=== PATIENT | female | born 2000 | race Two or more races ===

== ENCOUNTER 2024-10-25 22:19 | Emergency (ER) | payer BC, SELFPAY ==
[2024-10-25 22:19] VITALS: BMI 30.5
[2024-10-25 22:36] VITALS: BP 123/80; PULSE 90; RESP 18; TEMP 37.3; O2SAT 98
--- NOTE | 2024-10-25 23:15 | EDNOTE_ITS ---
Upper Respiratory Inf. RME/HPI General Chief Complaint: Dental/Oral/Throat Stated Complaint: SORE THROAT, SPIT UP BLOOD Time Seen by Provider: 10/25/24 22:40 Arrival date/time: 10/25/24 22:19 24F with no significant PMH presents to ED with 2 days of sore throat and some spitting up blood. Patient denies cough and N/V. Limitations: no limitations Related Data Previous Rx's ?Medication ?Instructions ?Recorded azithromycin 500 mg tablet 500 mg PO QDAY 5 days #5 tabs 10/25/24 Allergies Allergy/AdvReac Type Severity Reaction Status Date / Time Penicillins Allergy Severe RASH Verified 04/04/16 10:37 Review of Systems Review of Systems Systems Reviewed: All systems reviewed, normal except as documented Constitutional Constitutional: Reports system reviewed and no additional complaints, except as documented, Denies fever(s) and Denies headache(s) ENT Ears, Nose, Mouth, and Throat: Reports as per HPI, Denies disequilibrium, Denies headache(s) and Reports sore throat Cardiovascular Cardiovascular: Reports system reviewed and no additional complaints, except as documented, Denies chest pain and Denies dyspnea Respiratory Respiratory: Reports system reviewed and no additional complaints, except as documented, Denies cough and Denies dyspnea Gastrointestinal Gastrointestinal: Reports system reviewed and no additional complaints, except as documented, Denies abdominal pain, Denies nausea and Denies vomiting Neurologic Neurologic: Reports system reviewed and no additional complaints, except as documented, Denies confusion, Denies disequilibrium and Denies headache(s) Psychiatric Psychiatric: Denies confusion Past Medical History Social History SMOKING STATUS: Never smoker ED Exam General Limitations: Present no limitations General appearance: Present alert and in no apparent distress Head Head exam: Present atraumatic Eye Eye exam: Present normal appearance, PERRL and EOMI ENT ENT exam: Present mucous membranes moist Expanded ENT Exam Throat exam: Present tonsillar erythema, tonsillomegaly and tonsillar exudate; Absent R peritonsillar mass, L peritonsillar mass or muffled voice Neck Neck exam: Present normal inspection, full ROM and trachea midline Chest Chest inspection: Present normal inspection and symmetric chest wall rise Respiratory Respiratory exam: Present normal lung sounds bilaterally Cardiovascular Cardiovascular exam: Present regular rate, normal rhythm and normal heart sounds Abdominal Exam Abdominal exam: Present soft and normal bowel sounds Extremities Exam Extremities exam: Present normal inspection and full ROM Back Exam Back exam: Present normal inspection and full ROM Neurological Exam Neurological exam: Present alert, oriented X3 and CN II-XII intact Psychiatric Psychiatric exam: Present normal affect and normal mood Skin Skin exam: Present warm, dry, intact and normal color Course Quality Measures none Orders Category Date Time Status Strep A Rapid Stat Lab 10/25/24 22:40 Completed Vital Signs Vital signs: Vital Signs Temperature 99.2 F 10/25/24 22:36 Pulse Rate 90 10/25/24 22:36 Respiratory Rate 18 10/25/24 22:36 Blood Pressure 123/80 10/25/24 22:36 Pulse Oximetry (%) 98 10/25/24 22:36 Oxygen Delivery Method Room Air 10/25/24 22:36 O2 at 98% on RA and WNLs Upper Respiratory Infection MDM Narrative MDM Narrative:: 24F with no significant PMH presents to ED with 2 days of sore throat and some spitting up blood. Patient denies cough and N/V. Physical exam reveals red and swollen oropharynx with some exudates. Patient is afebrile, calm, and alert. Strep neg. But given presentation and bleeding, will treat with ABX. Patient data External records reviewed:: [facility] previous records Clinical information provided by:: patient Social determinants that could affect healthcare access:: none Patient has the following chronic illnesses:: none How is presenting disease/condition affected by chronic disease/condition?: no chronic disease Evaluation data The following diagnostics were reviewed and interpreted by me:: lab results Lab and/or radiology exams considered but not ordered:: ordered Interpretation Summary: above Medications / Prescriptions Medications or Prescriptions considered but not ordered:: not ordered Medication administrations:: n/a Consultations Consultation(s) initiated? (list below): No Diagnosis Upper Respiratory Differential Diagnosis: upper respiratory infection, croup, otitis media, sinusitis, viral infection, bronchitis, influenza, pharyngitis and other (tonsillitis ) Most likely diagnosis given after review of the tests above:: tonsillitis Admission Indicated Admission indicated?: not indicated Admission Request Was there a request for admission?: No Disposition Plan Disposition Plan: Discharge Discharge Attestation Discharge Attestation: The patient and all family members were given an opportunity to ask questions and understood the discharge instructions. Discharge instructions specifically effects, indications for sooner follow up or return to the emergency department, and the expected course of current diagnosis. Patient condition: Stable Discharge Plan Plan Patient Disposition: HOME (Self Care) Disposition Comment: Stable Prescriptions/Referrals Prescriptions/Med Rec: New azithromycin 500 mg tablet 500 mg PO QDAY 5 Days Qty: 5 0RF Problem List Clinical Impression: Acute tonsillitis Patient/Caregiver Discharge Instructions Education Materials: Tonsillitis in Adults Additional Instructions: Please follow-up with PCP within 24-48 hours and return immediately if symptoms worsen. Print Language: Kyrgyz Stand Alone Forms: Patient Portal Info Letter PA/BINDER CUTTER HAND Supervising Physician JOSEPH/KENYETTA Supervising Physician: Dr. Perez
[2024-10-25 23:18] LABS: Strep A Rapid Negative (Negative)
== END 2024-10-25 23:25 | disposition home or self-care (01) ==
PROVIDERS: Physician Assistant; Emergency Provider Emergency Medicine
DX: J03.90 Acute tonsillitis, unspecified (principal)
CPT/HCPCS: 87651; 99283

== ENCOUNTER 2025-03-12 13:57 | Outpatient (AMB) | payer BC, SELFPAY ==
--- NOTE | 2025-03-12 14:13 | OBCLNT_ITS ---
Vital Signs 03/12/25 14:23 Height 1.47 m Height Method Stated Weight 69.853 kg Weight Measurement Method Standing Scale BMI 32.1 BP 121/76 Blood Pressure Source Automatic Cuff Blood Pressure Location Right Upper Arm Position Sitting Respiration 16 Pulse 83 Pulse Source Monitor Temp 98.8 F Temp Source Oral Pulse Oximetry (%) 98 Oxygen Delivery Method Room Air Allergies/Home Meds Allergies & Medications Allergies Penicillins Allergy (Severe, Verified 03/12/25 14:26) RASH Medication Reconciliation No Known Home Medications 03/12/25 [History Confirmed 03/12/25] Intake Visit Data Collection New Patient or Established: Established Patient (seen at [facility] within 3 years) Reason for Visit:: INITIAL CARE Seen by Clinical Staff ONLY (RN/MA): No Dispatcher Tugboat Required: No Do You Feel Safe at Home: Yes Authorities Contacted: N/A PCP or OBGYN visit in last 3 months: No Hx Now: Yes Are you currently on any form of Control: No Last menstrual period: 01/09/25 Pain Present Currently: No Pain Scale Used: Landeros-Simpson/Numerical Pain scale:: 0 Smoking Status Smoking Status: Never smoker Questionnaires Covid-19 Vaccine Questionnaire Has patient been vacinated for Covid-19 Have you been vacinated for Covid-19: Yes PHQ-9 PHQ-2 Over the last 2 weeks, how often have you been bothered by any of the following problems? 1. Little interest or pleasure in doing things: not at all 2. Feeling down, depressed, or hopeless: not at all Total score: 0 PHQ-9 3. Trouble falling or staying asleep, or sleeping too much: Not at all 4. Feeling tired or having little energy: Not at all 5. Poor appetite or overeating: Not at all 6. Feeling bad about yourself - or that you are a failure or have let yourself or your family down: Not at all 7. Trouble concentrating on things, such as reading the newspaper or watching television: Not at all 8. Moving or speaking so slowly that other people could have noticed? - Or the opposite - being so fidgety or restless that you have been moving around a lot more than usual: not at all 9. Thoughts that you would be better off or of hurting yourself in some way: Not at all Total score: 0 Source: Developed by Drs. Sharath Ibarra, Jocelyn Loza, Ronny Parmar and colleagues, with an educational kandace from [employer]. Depression screen completed yes Social History Tobacco History Smoking Status: Never smoker Domestic Abuse History Do You Feel Safe at Home: Yes Past Medical History Past Medical History Have you ever been diagnosed with any of the following: History of Present Illness HPI Narrative 25 yo , IUP 8w6 for OBI. lmp 01/09/25. EDC 10/17/25. sure date. menarche at 10. menses q month. No PMH,No social habit.no surgery. here with partner, Happy with + preg test. denies sab complaints, taking prenatals OB Initial Visit OB Flowsheet OB Flowsheet Initial Weight: Not Recorded Date -?-?-?-?-?-?-?-?-?-?-?-?- EGA Weight Edema CTX Effacement BP Fundal ht Pres Dilation Effacement Station Visit Note Alb Glu FHR Mov 03/12/25 -?-?-?-?-?-?-?-?-?-?-?-?- 8w 6d 69.853 kg absent absent 121/76 9 25 yo for OBI, sure dates, LMP 01/09/26, IUP 8w6. no 1st tri discomfort. takes PNV, Negative medical history. patients reports she is bisexual. labs and UTOX today, get NIPT and carrier screen 5/15, sono for dates and viability. pap today. rtc 4 week 25 yo for OBI, sure josee es, LMP 01/09/26, IUP 8w6. no 1st tri discomfort. takes PNV, Negative medical history. patients reports she is bisexual. labs and UTOX today, get NIPT and carrier screen /15, sono for dates and viability. pap today. rtc 4 week. urine dip clear Menstrual History Menstrual reliability: definite Flow: normal Menstrual regularity: regular Monthly: Yes Age at menarche: 10 On control pills at conception: No Associated symptoms (LMP): Reports fatigue, breast tenderness and irritability Details: , lmp:01/09/25. EDC 10/17/25 OB History : 1 # of Living Children: 0 Infection History & Risk Evaluation History of STDs: none HIV risk evaluation: low risk Hepatitis B risk evaluation: low risk Patient or partner has history of Genital Herpes: No Genetic Screening & History Genetic Screening/Teratology Counseling - Includes patient, baby's father, or anyone in either family with: 1. Patient's age 35 years or older as of estimated date of delivery: No 2. Thalassemia (Malagasy, Faroese, Mediterranean, or Background); MCV less than 80: No 3. Neural Tube Defect (Meningomyelocele, Spina Bifida, or Anencephaly): No 4. Congenital Heart Defect: No 5. Down Syndrome: No 6. Amado-Sachs (Ashkenazi Cheondoism, Cajun, Icelandic [place]irondack): No 7. Orlando Disease (Ashkenazi Cheondoism): No 8. Familial Dysautonomia (Ashkenazi Cheondoism): No 9. Sickle Cell Disease or Trait (): No 10. Hemophilia or other blood disorders: No 11. Muscular Dystrophy: No 12. Cystic Fibrosis: No 13. Bee's Chorea: No 14. Mental Retardation/Autism: No 15. Other inherited genetic or chromosomal disorder: No 16. Maternal Metabolic Disorder (EG,TYPE 1 Diabetes, PKU): No 17. Patient or baby's father had a child with defects not listed above: No 18. Recurrent loss or a stillbirth: No 19. Medications (including supplements, vitamins, herbs or otc drugs)/illicit/recreational drugs/alcohol since last menstrual period: No 20. Any other: No Infection History 1. Live with someone with TB or exposed to TB: No 2. Rash or viral illness since last menstrual period: No 3. Hepatitis B,C: No Other (see comments) Source: [employer] Review of Systems Review of Systems Systems Reviewed: All systems reviewed, normal except as documented Constitutional Constitutional: Reports fatigue Psychiatric Psychiatric: Reports irritability Endocrine Endocrine: Reports fatigue Exam Narrative Physical exam: both breast soft, symmetrical, both nipple pierced. abdomen soft, 9 week size, vagina pink, no bleeding. lungs clear, RRR, no edema General Limitations: no limitations General Appearance: alert, in no apparent distress, comfortable, cooperative, healthy appearing, well developed and well groomed Chest Chest inspection: Present normal inspection and symmetric chest wall rise Resp Respiratory exam: Present normal lung sounds bilaterally Card Cardiovascular exam: Present regular rate, normal rhythm and normal heart sounds Abdominal Abdominal exam: Present soft and normal bowel sounds Psych Psychiatric exam: Present normal affect and normal mood Assessment & Plan Diagnosis / Problem List (1) Encounter for care in first trimester of first : Status: Acute (2) : Status: Acute Qualifiers: Weeks of gestation: 9 weeks Qualified Code(s): Z3A.09 - 9 weeks gestation of Plan Pap today, OB panel, NIPT and carrier screen Drawn 03/20/25, schedule sono for date and viability. schedule MFM at 20 week. sab precaution discussed. discuss diet and weight. rtc 4 week Additional Plan Follow Up: 4 Weeks (obc) Office Procedures OB Clinic LOC & Office Proc's Nursing/Assessment Patient Status: Established Patient OB Clinic Nursing Assessment: Medication Reconciliation, Update PMH in EMR and Vital Signs OB Clinic Coordination of Care: Complex Care and Chronic Disease 1-5, Consent,records obtained, informed consent, Education Simp Pt/Fam, Lab and Imaging orders, Results/Orders obtained and Staff clarify orders Special Needs: Heart tones Miscellaneous Interventions: Blood/Urine Collection and Pelvic/Pap Smear Set up Established Patient Charge Established Patient Point Assignment: 185 Established Patient Point Charge: EP Level 5 (160-above) In Clinic Procedures Pap Smear: Yes FLOORING GRADER: Papsmear Pap Smear Procedure Chaparone in room during procedure?: No Pre-op diagnosis general: IUP 8w for pap Post-op diagnosis procedure note: Same Procedure Notes:: lithotomy, spec inserted and pap performed. no bleeding Papsmear completed: yes
[2025-03-12 14:23] VITALS: BP 121/76; PULSE 83; RESP 16; TEMP 37.1; O2SAT 98; BMI 32.1
== END 2025-03-12 14:46 | disposition home or self-care (01) ==
LOC: HODSOBC 13:57
PROVIDERS: Supervising Provider Advanced Practice Midwife; Visit Provider Advanced Practice Midwife
DX: Z34.01 Encounter for supervision of normal first pregnancy, first trimester (principal); Z3A.08 8 weeks gestation of pregnancy; Z88.0 Allergy status to penicillin
CPT/HCPCS: 81001; 99215; Q0091; G0463

== ENCOUNTER 2025-04-09 09:07 | Outpatient (AMB) | payer BC, SELFPAY ==
--- NOTE | 2025-04-09 09:19 | AMB.OBVISIT ---
Vital Signs 04/09/25 09:20 Height 1.47 m Height Method Stated Weight 68.719 kg Weight Measurement Method Standing Scale BMI 31.6 BP 118/76 Blood Pressure Source Automatic Cuff Blood Pressure Location Right Upper Arm Position Sitting Respiration 17 Pulse 65 Pulse Source Monitor Temp 98.2 F Temp Source Temporal Artery Scan Pulse Oximetry (%) 98 Oxygen Delivery Method Room Air Allergies/Home Meds Allergies & Medications Allergies Penicillins Allergy (Severe, Verified 04/09/25 09:20) RASH Medication Reconciliation vits no.126-ferrous fum 28 mg iron-folic acid 800 mcg tablet (Classic ) 0.126 - 28 tab PO DAILY 30 days #60 tabs 03/12/25 [Rx Confirmed 04/09/25] Intake Visit Data Collection New Patient or Established: Established Patient (seen at [facility] within 3 years) Reason for Visit:: OBC Seen by Clinical Staff ONLY (RN/MA): No Director Of Corporate Marketing Required: No Do You Feel Safe at Home: Yes Authorities Contacted: N/A PCP or OBGYN visit in last 3 months: Yes Date of Last PCP or OBGYN visit: 03/12/25 Hx Now: Yes Are you currently on any form of Control: No Pain Present Currently: No Pain Scale Used: Landeros-Simpson/Numerical Pain scale:: 0 Smoking Status Smoking Status: Never smoker Questionnaires Covid-19 Vaccine Questionnaire Has patient been vacinated for Covid-19 Have you been vacinated for Covid-19: Yes PHQ-9 PHQ-2 Over the last 2 weeks, how often have you been bothered by any of the following problems? 1. Little interest or pleasure in doing things: not at all 2. Feeling down, depressed, or hopeless: several days Total score: 1 PHQ-9 3. Trouble falling or staying asleep, or sleeping too much: Not at all 4. Feeling tired or having little energy: Several days 5. Poor appetite or overeating: Not at all 6. Feeling bad about yourself - or that you are a failure or have let yourself or your family down: Not at all 7. Trouble concentrating on things, such as reading the newspaper or watching television: Not at all 8. Moving or speaking so slowly that other people could have noticed? - Or the opposite - being so fidgety or restless that you have been moving around a lot more than usual: not at all 9. Thoughts that you would be better off or of hurting yourself in some way: Not at all Total score: 2.0 If you checked off any problems, how difficult have these problems made it for you to do your work, take care of things at home, or get along with other people?: not difficult at all Source: Developed by Drs. Sharath Ibarra, Jocelyn Loza, Ronny Parmar and colleagues, with an educational kandace from [employer]. Depression screen completed yes Social History Living Situation History Lives With: Family Housing: House Tobacco History Smoking Status: Never smoker Domestic Abuse History Do You Feel Safe at Home: Yes Care OB Visit Log OB Flowsheet Initial Weight: Not Recorded Date <del>?</del> EGA Weight BP Alb Glu CTX Pres Fundal ht FHR Mov Dilation Station Effacement Hx Notes Visit Note 03/12/25 <del>?</del> 5w 3d 69.853 kg 121/76 absent 9 25 yo for OBI, sure dates, LMP 01/09/26, IUP 8w6. no 1st tri discomfort. takes PNV, Negative medical history. patients reports she is bisexual. labs and UTOX today, get NIPT and carrier screen 03/20, sono for dates and viability. pap today. rtc 4 week 25 yo for OBI, sure dates, LMP 01/09/26, IUP 8w6. no 1st tri discomfort. takes PNV, Negative medical history. patients reports she is bisexual. labs and UTOX today, get NIPT and carrier screen 03/20, sono for dates and viability. pap today. rtc 4 week. urine dip clear 04/09/25 <del>?</del> 9w 3d 68.719 kg 118/76 absent unknown 10 doing well. aware of need for colpo due to abnormal pap/ASCUS/HPV+. patient aware of twin , no +FM yet, denies VB,LOF or cramps. no c/o N/V reviewed pap and need for colpo. schedule MFM appointment for twins/NT and early scan, review SAB precaution and danger s/s. continue PNV and increase fluids, RTC with OB 4 week RAPHAEL Calculator Estimated Delivery Date Method Current WG Current Estimate 11/09/25 Ultrasound #1 9w 3d Other Estimates 10/16/25 LMP (Certain) 12w 6d Notes Visit Date: 04/09/25 Last Updated by: Ita Almaraz, MAURILIO 25 yo , IUP 9w3/ twin abnormal pap: ASCUS/HPV+ Office Procedures OB Clinic LOC & Office Proc's Nursing/Assessment Patient Status: Established Patient OB Clinic Nursing Assessment: Medication Reconciliation, Update PMH in EMR and Vital Signs OB Clinic Coordination of Care: Complex Care and Chronic Disease 1-5, Consent,records obtained, informed consent, Education Simp Pt/Fam and Staff clarify orders Special Needs: Heart tones Established Patient Charge Established Patient Point Assignment: 115 Established Patient Point Charge: EP Level 3 (80-115) Assessment & Plan Diagnosis / Problem List (1) Twin gestation in first trimester: Status: Acute (2) Encounter for care in first trimester of first : Status: Acute (3) High risk case management patient in first trimester: Status: Acute Plan schedule with OB in 4 week. needs f/u for abnormal pap/colpo. schedule MFM appointment for early scan and NT. discuss sab precaution. continue PNV,increase fluid. Additional Plan Follow Up: 4 Weeks (obc)
[2025-04-09 09:20] VITALS: BP 118/76; PULSE 65; RESP 17; TEMP 36.8; O2SAT 98; BMI 31.6
== END 2025-04-09 09:58 | disposition home or self-care (01) ==
LOC: HODSOBC 09:07
PROVIDERS: Supervising Provider Obstetrics & Gynecology; Visit Provider Obstetrics & Gynecology
DX: O09.891 Supervision of other high risk pregnancies, first trimester (principal); O30.001 Twin pregnancy, unspecified number of placenta and unspecified number of amniotic sacs, first trimester; O98.311 Other infections with a predominantly sexual mode of transmission complicating pregnancy, first trimester; A63.0 Anogenital (venereal) warts; Z3A.09 9 weeks gestation of pregnancy; Z88.0 Allergy status to penicillin
CPT/HCPCS: 99213; G0463

== ENCOUNTER 2025-05-20 09:26 | Outpatient (AMB) | payer OTHER, MEDICAID, SELFPAY ==
[2025-05-20 09:48] VITALS: BP 101/67; PULSE 88; RESP 17; TEMP 36.8; O2SAT 97; BMI 31.7
--- NOTE | 2025-05-20 09:48 | OBCLNT_ITS ---
Vital Signs 05/20/25 09:48 Height 1.47 m Height Method Stated Weight 68.606 kg Weight Measurement Method Standing Scale BMI 31.7 BP 101/67 Blood Pressure Source Automatic Cuff Blood Pressure Location Right Upper Arm Position Sitting Respiration 17 Pulse 88 Pulse Source Monitor Temp 98.2 F Temp Source Temporal Artery Scan Pulse Oximetry (%) 97 Oxygen Delivery Method Room Air Allergies/Home Meds Allergies & Medications Allergies Penicillins Allergy (Severe, Verified 05/20/25 09:48) RASH Medication Reconciliation vits no.126-ferrous fum 28 mg iron-folic acid 800 mcg tablet (Classic ) 0.126 - 28 tab PO DAILY 30 days #60 tabs 03/12/25 [Rx Confirmed 05/20/25] Intake Visit Data Collection New Patient or Established: Established Patient (seen at [facility] within 3 years) Reason for Visit:: OBC 15W 2D Seen by Clinical Staff ONLY (RN/MA): No Suppression Crew Leader Required: No Do You Feel Safe at Home: Yes Authorities Contacted: N/A PCP or OBGYN visit in last 3 months: Yes Date of Last PCP or OBGYN visit: 04/09/25 Hx Now: Yes Are you currently on any form of Control: No Pain Present Currently: No Pain Scale Used: Landeros-Simpson/Numerical Pain scale:: 0 Smoking Status Smoking Status: Never smoker Questionnaires Covid-19 Vaccine Questionnaire Has patient been vacinated for Covid-19 Have you been vacinated for Covid-19: No PHQ-9 PHQ-2 Over the last 2 weeks, how often have you been bothered by any of the following problems? 1. Little interest or pleasure in doing things: not at all 2. Feeling down, depressed, or hopeless: not at all Total score: 0 PHQ-9 3. Trouble falling or staying asleep, or sleeping too much: Not at all 4. Feeling tired or having little energy: Not at all 5. Poor appetite or overeating: Not at all 6. Feeling bad about yourself - or that you are a failure or have let yourself or your family down: Not at all 7. Trouble concentrating on things, such as reading the newspaper or watching television: Not at all 8. Moving or speaking so slowly that other people could have noticed? - Or the opposite - being so fidgety or restless that you have been moving around a lot more than usual: not at all 9. Thoughts that you would be better off or of hurting yourself in some way: Not at all Total score: 0 If you checked off any problems, how difficult have these problems made it for you to do your work, take care of things at home, or get along with other people?: not difficult at all Source: Developed by Drs. Sharath Ibarra, Jocelyn Loza, Ronny Parmar and colleagues, with an educational kandace from [employer] Depression screen completed yes Social History Living Situation History Marital Status: Lives With: Family Housing: House Tobacco History Smoking Status: Never smoker Second Hand Smoke Exposure: No Alcohol History Alcohol Intake: Never Domestic Abuse History Do You Feel Safe at Home: Yes Care OB Visit Log OB Flowsheet Initial Weight: Not Recorded Date -?-?-?-?-?--?-?-?-?-?-?-?- EGA Weight BP Alb Glu CTX Pres Fundal ht FHR Mov Dilation Station Effacement Hx Notes Visit Note 03/12/25 -?-?-?-?-?-?-?-?-?-?-?-?- 5w 3d 69.853 kg 121/76 absent 9 25 yo for OBI, sure dates, LMP 01/09/26, IUP 8w6. no 1st tri discomfort. takes PNV, Negative medical history. patients reports she is bisexual. labs and UTOX today, get NIPT and carrier screen 03/20, sono for dates and viability. pap today. rtc 4 week 25 yo for OBI, sure josee es, LMP 01/09/26, IUP 8w6. no 1st tri discomfort. takes PNV, Negative medical history. patients reports she is bisexual. labs and UTOX today, get NIPT and carrier screen 03/20, sono for dates and viability. pap today. rtc 4 week. urine dip clear 04/09/25 -?-?--?-?-?-?-?-?-?-?-?-?- 9w 3d 68.719 kg 118/76 absent unknown 10 doing well. aware of need for colpo due to abnormal pap/ASCUS/HPV+. patient aware of twin , no +FM yet, denies VB,LOF or cramps. no c/o N/V reviewed pap and need for colpo. schedule MFM appointment for twins/NT and early scan, review SAB precaution and danger s/s. continue PNV and increase fluids, RTC with OB 4 week 05/20/25 -?-?-?-?-?-?-?-?-?-?-?-?- 15w 2d 68.606 kg 101/67 at 15w2d with MCDA twins, reports severe allergies. Denies ANAYA, VC, epigastric pain. FHR: A 150, B 149. Recent sono confirms MCDA gestation. HPV+ screen. Plan: Refer to [facility] at [facility]; f/u q2w. Routine labs ordered. Counselled on care, genetic screening, allergy symptom management, warning signs, and lifestyle. Return in 4wks. RAPHAEL Calculator Estimated Delivery Date Method Current WG Current Estimate 11/09/25 Ultrasound #1 15w 5d Other Estimates 10/16/25 LMP (Certain) 19w 1d Notes Visit Date: 04/09/25 Last Updated by: Ita Almaraz, MAURILIO 25 yo , IUP 9w3/ twin abnormal pap: ASCUS/HPV+ Office Procedures OB Clinic LOC & Office Proc's Nursing/Assessment Patient Status: Established Patient OB Clinic Nursing Assessment: Medication Reconciliation, Update PMH in EMR and Vital Signs OB Clinic Coordination of Care: Complex Care and Chronic Disease 1-5, Consent,records obtained, informed consent, Education Simp Pt/Fam and Staff clarify orders Special Needs: Heart tones Established Patient Charge Established Patient Point Assignment: 115 Established Patient Point Charge: EP Level 3 (80-115) Assessment & Plan Diagnosis / Problem List (1) High risk case management patient in first trimester: Status: Acute (2) Twin gestation in first trimester: Status: Acute (3) Monochorionic diamniotic twin gestation: Status: Acute
== END 2025-05-20 11:04 | disposition home or self-care (01) ==
PROVIDERS: Supervising Provider Obstetrics & Gynecology; Visit Provider Obstetrics & Gynecology
DX: O09.892 Supervision of other high risk pregnancies, second trimester (principal); O30.032 Twin pregnancy, monochorionic/diamniotic, second trimester; Z3A.15 15 weeks gestation of pregnancy; Z88.0 Allergy status to penicillin
CPT/HCPCS: 99213; G0463

== ENCOUNTER 2025-06-16 09:45 | Outpatient (AMB) | payer OTHER, MEDICAID, SELFPAY ==
[2025-06-16 09:49] VITALS: BP 112/74; PULSE 78; RESP 17; TEMP 36.7; O2SAT 97; BMI 32.8
--- NOTE | 2025-06-16 09:49 | OBCLNT_ITS ---
Vital Signs 06/16/25 09:49 Height 1.47 m Height Method Measured Weight 70.987 kg Weight Measurement Method Standing Scale BMI 32.8 BP 112/74 Blood Pressure Source Automatic Cuff Blood Pressure Location Right Upper Arm Position Sitting Respiration 17 Pulse 78 Pulse Source Monitor Temp 98.0 F Temp Source Temporal Artery Scan Pulse Oximetry (%) 97 Oxygen Delivery Method Room Air Allergies/Home Meds Allergies & Medications Allergies Penicillins Allergy (Severe, Verified 06/16/25 09:50) RASH Medication Reconciliation vits no.126-ferrous fum 28 mg iron-folic acid 800 mcg tablet (Classic ) 0.126 - 28 tab PO DAILY 30 days #60 tabs 03/12/25 [Rx Confirmed 06/16/25] Intake Visit Data Collection New Patient or Established: Established Patient (seen at [facility] within 3 years) Reason for Visit:: OBC Consent obtained for Telemed Visit: No Seen by Clinical Staff ONLY (RN/MA): No Admin Secretary Required: No Do You Feel Safe at Home: Yes Authorities Contacted: N/A PCP or OBGYN visit in last 3 months: Yes Date of Last PCP or OBGYN visit: 05/20/25 Hx Now: Yes Are you currently on any form of Control: No Pain Present Currently: No Pain Scale Used: Landeros-Simpson/Numerical Pain scale:: 0 Smoking Status Smoking Status: Never smoker Questionnaires Covid-19 Vaccine Questionnaire Has patient been vacinated for Covid-19 Have you been vacinated for Covid-19: No PHQ-9 PHQ-2 Over the last 2 weeks, how often have you been bothered by any of the following problems? 1. Little interest or pleasure in doing things: not at all PHQ-9 8. Moving or speaking so slowly that other people could have noticed? - Or the opposite - being so fidgety or restless that you have been moving around a lot more than usual: not at all Source: Developed by Drs. Sharath Ibarra, Jocelyn Loza, Ronny Parmar and colleagues, with an educational kandace from [employer]. Social History Living Situation History Lives With: Family Housing: House Tobacco History Smoking Status: Never smoker Second Hand Smoke Exposure: No Alcohol History Alcohol Intake: Never Domestic Abuse History Do You Feel Safe at Home: Yes Care OB Visit Log OB Flowsheet Initial Weight: Not Recorded Date -?-?-?-?-?-?-?-?-?-?-?-?- EGA Weight BP Alb Glu CTX Pres Fundal ht FHR Mov Dilation Station Effacement Hx Notes Visit Note 03/12/25 -?-?-?-?-?-?-?-?-?-?-?-?- 5w 3d 69.853 kg 121/76 absent 9 25 yo for OBI, sure dates, LMP 01/09/26, IUP 8w6. no 1st tri discomfort. takes PNV, Negative medical history. patients reports she is bisexual. labs and UTOX today, get NIPT and carrier screen 03/20, sono for dates and viability. pap today. rtc 4 week 25 yo for OBI, sure josee es, LMP 01/09/26, IUP 8w6. no 1st tri discomfort. takes PNV, Negative medical history. patients reports she is bisexual. labs and UTOX today, get NIPT and carrier screen 03/20, sono for dates and viability. pap today. rtc 4 week. urine dip clear 04/09/25 -?-?-?-?-?-?-?-?-?-?-?-?- 9w 3d 68.719 kg 118/76 absent unknown 10 doing well. aware of need for colpo due to abnormal pap/ASCUS/HPV+. patient aware of twin , no +FM yet, denies VB,LOF or cramps. no c/o N/V reviewed pap and need for colpo. schedule [facility] appointment for twins/NT and early scan, review SAB precaution and danger s/s. continue PNV and increase fluids, RTC with OB 4 week 05/20/25 -?-?-?-?-?-?-?-?-?-?-?-?- 15w 2d 68.606 kg 101/67 at 15w2d with MCDA twins, reports severe allergies. Denies ANAYA, VC, epigastric pain. FHR: A 150, B 149. Recent sono confirms MCDA gestation. HPV+ screen. Plan: Refer to [facility] at [facility]; f/u q2w. Routine labs ordered. Counselled on care, genetic screening, allergy symptom management, warning signs, and lifestyle. Return in 4wks. 06/16/25 -?-?-?-?-?-?-?-?-?-?-?-?- 19w 1d 70.987 kg 112/74 absent active MCDA twin at 19w1d, recent US 06/09/25 shows both twins at 18w1d with equal growth, FHRs 143 (A) & 153 (B), good fluid, patient feels movement, on ASA. Plan: GTT in 1?2 wks, f/u with [facility] next week for US/Dopplers, monitor q2?4wks, return here in 4 wks. RAPHAEL Calculator Estimated Delivery Date Method Current WG Current Estimate 11/09/25 Ultrasound #1 19w 1d Other Estimates 10/16/25 LMP (Certain) 22w 4d Notes Visit Date: 04/09/25 Last Updated by: Ita Almaraz, CN 25 yo , IUP 9w3/ twin abnormal pap: ASCUS/HPV+ Office Procedures OB Clinic LOC & Office Proc's Nursing/Assessment Patient Status: Established Patient OB Clinic Nursing Assessment: Medication Reconciliation, Update PMH in EMR and Vital Signs OB Clinic Coordination of Care: Complex Care and Chronic Disease 1-5, Consent,records obtained, informed consent, Education Simp Pt/Fam, 4+ Authorizations needed and Results/Orders obtained Special Needs: Heart tones Established Patient Charge Established Patient Point Assignment: 135 Established Patient Point Charge: EP Level 4 (120-155) Assessment & Plan Diagnosis / Problem List (1) Monochorionic diamniotic twin gestation: Status: Acute
== END 2025-06-16 10:10 | disposition home or self-care (01) ==
LOC: HODSOBC 09:45
PROVIDERS: Supervising Provider Obstetrics & Gynecology; Visit Provider Obstetrics & Gynecology
DX: O09.892 Supervision of other high risk pregnancies, second trimester (principal); O30.032 Twin pregnancy, monochorionic/diamniotic, second trimester; Z3A.19 19 weeks gestation of pregnancy; Z88.0 Allergy status to penicillin
CPT/HCPCS: 99214; G0463

== ENCOUNTER 2025-07-28 15:14 | Outpatient (AMB) | payer OTHER, MEDICAID, SELFPAY ==
[2025-07-28 15:29] VITALS: BP 107/70; PULSE 83; RESP 16; TEMP 36.6; O2SAT 95; BMI 34.2
--- NOTE | 2025-07-28 15:29 | OBCLNT_ITS ---
Vital Signs 07/28/25 15:29 Height 1.47 m Height Method Stated Weight 73.936 kg Weight Measurement Method Standing Scale BMI 34.2 BP 107/70 Blood Pressure Source Automatic Cuff Blood Pressure Location Left Upper Arm Position Sitting Respiration 16 Pulse 83 Pulse Source Monitor Temp 97.8 F Temp Source Oral Pulse Oximetry (%) 95 Oxygen Delivery Method Room Air Allergies/Home Meds Allergies & Medications Allergies Penicillins Allergy (Severe, Verified 07/28/25 15:30) RASH Medication Reconciliation vits no.126-ferrous fum 28 mg iron-folic acid 800 mcg tablet (Classic ) 0.126 - 28 tab PO DAILY 30 days #60 tabs 03/12/25 [Rx Confirmed 07/28/25] Intake Visit Data Collection New Patient or Established: Established Patient (seen at [facility] within 3 years) Reason for Visit:: CARE Seen by Clinical Staff ONLY (RN/MA): No Store Protection Specialist Required: Yes Do You Feel Safe at Home: Yes Authorities Contacted: N/A PCP or OBGYN visit in last 3 months: Yes Hx Now: Yes Are you currently on any form of Control: No Pain Present Currently: No Pain Scale Used: Landeros-Simpson/Numerical Pain scale:: 0 Smoking Status Smoking Status: Never smoker Questionnaires Covid-19 Vaccine Questionnaire Has patient been vacinated for Covid-19 Have you been vacinated for Covid-19: Yes PHQ-9 PHQ-2 Over the last 2 weeks, how often have you been bothered by any of the following problems? 1. Little interest or pleasure in doing things: not at all 2. Feeling down, depressed, or hopeless: not at all Total score: 0 PHQ-9 3. Trouble falling or staying asleep, or sleeping too much: Not at all 4. Feeling tired or having little energy: Not at all 5. Poor appetite or overeating: Not at all 6. Feeling bad about yourself - or that you are a failure or have let yourself or your family down: Not at all 7. Trouble concentrating on things, such as reading the newspaper or watching television: Not at all 8. Moving or speaking so slowly that other people could have noticed? - Or the opposite - being so fidgety or restless that you have been moving around a lot more than usual: not at all 9. Thoughts that you would be better off or of hurting yourself in some way: Not at all Total score: 0 Source: Developed by Drs. Sharath Ibarra, Jocelyn Loza, Ronny Parmar and colleagues, with an educational kandace from [employer]. Depression screen completed yes Social History Living Situation History Lives With: Family Housing: House Tobacco History Smoking Status: Never smoker Second Hand Smoke Exposure: No Alcohol History Alcohol Intake: Never Domestic Abuse History Do You Feel Safe at Home: Yes Care OB Visit Log OB Flowsheet Initial Weight: Not Recorded Date -?-?-?-?-?-?-?-?-?-?-?-?- EGA Weight BP Alb Glu CTX Pres Fundal ht FHR Mov Dilation Station Effacement Hx Notes Visit Note 03/12/25 -?-?-?-?-?-?-?-?-?-?--?-?- 5w 3d 69.853 kg 121/76 absent 9 25 yo for OBI, sure dates, LMP 01/09/26, IUP 8w6. no 1st tri discomfort. takes PNV, Negative medical history. patients reports she is bisexual. labs and UTOX today, get NIPT and carrier screen 03/20, sono for dates and viability. pap today. rtc 4 week 25 yo for OBI, sure josee es, LMP 01/09/26, IUP 8w6. no 1st tri discomfort. takes PNV, Negative medical history. patients reports she is bisexual. labs and UTOX today, get NIPT and carrier screen 03/20, sono for dates and viability. pap today. rtc 4 week. urine dip clear 04/09/25 -?-?-?-?-?-?-?-?-?-?-?-?- 9w 3d 68.719 kg 118/76 absent unknown 10 doing well. aware of need for colpo due to abnormal pap/ASCUS/HPV+. patient aware of twin , no +FM yet, denies VB,LOF or cramps. no c/o N/V reviewed pap and need for colpo. schedule MFM appointment for twins/NT and early scan, review SAB precaution and danger s/s. continue PNV and increase fluids, RTC with OB 4 week 05/20/25 -?-?-?-?-?-?-?-?-?-?-?-?- 15w 2d 68.606 kg 101/67 at 15w2d with MCDA twins, reports severe allergies. Denies ANAYA, VC, epigastric pain. FHR: A 150, B 149. Recent sono confirms MCDA gestation. HPV+ screen. Plan: Refer to MFM at [facility]; f/u q2w. Routine labs ordered. Counselled on care, genetic screening, allergy symptom management, warning signs, and lifestyle. Return in 4wks. 06/16/25 -?-?-?-?-?-?-?-?-?-?-?-?- 19w 1d 70.987 kg 112/74 absent active MCDA twin at 19w1d, recent US 06/09/25 shows both twins at 18w1d with equal growth, FHRs 143 (A) & 153 (B), good fluid, patient feels movement, on ASA. Plan: GTT in 1?2 wks, f/u with [facility] next week for US/Dopplers, monitor q2?4wks, return here in 4 wks. 07/28/25 -?-?-?-?-?-?-?-?-?-?-?-?- 25w 1d 73.936 kg 107/70 1 para 0 patient at 25 weeks and 1 day gestation with monocorionic diamniotic twins, presenting for routine follow-up. - Patient reports experiencing cramping on her left side for the past week: - Intermittent throughout the day - Not described as particularly bother some or severe - No mention of impact on sleep or yeison ly activities - Patient denies any other symptoms or concerns - Follow up in 2 weeks for TTS- TPS screen and to complete suboptimal anatomy scan - Follow up in 4 weeks for regular prena ayala visit - Drink 32 ounces of water over an hour if experiencing cramping - Come in for evaluation if cramping bec omes persistent, stronger, or progressi ve - Continue monitoring for signs of prete rm labor due to twin gestation RAPHAEL Calculator Estimated Delivery Date Method Current WG Current Estimate 11/09/25 Ultrasound #1 25w 2d Other Estimates 10/16/25 LMP (Certain) 28w 5d Notes Visit Date: 07/28/25 Last Updated by: Haider Pnada MD - Date: March 24, 2025 - [facility] Ultrasound: - Monocorionic diamniotic twin gestation - Baby A: 958 grams, 99th percentile - Baby B: 764 grams, 56th percentile - Normal echoes of twin A and twin B - Normal amniotic fluid - Overall anatomy survey within normal limits - Cervix could not be visualized Visit Date: 04/09/25 Last Updated by: Ita Almaraz, [facility] 25 yo , IUP 9w3/ twin abnormal pap: ASCUS/HPV+ Assessment & Plan Diagnosis / Problem List (1) Monochorionic diamniotic twin gestation: Status: Acute Plan Problem List - Monocorionic diamniotic twin gestation - 1 Para 0 Assessment 1 para 0 at 25 weeks and 1 day with monochorionic diamniotic twin gestation. Recent [facility] ultrasound on March 24, 2025, showed Baby A at 958 grams (99th percentile) and Baby B at 764 grams (56th percentile), with 0% discordance. Anatomy survey was within normal limits for both fetuses, with normal echoes. Amniotic fluid levels were normal. Patient reports intermittent left-sided cramping for the past week, likely due to uterine expansion from twin gestation. One-hour glucose tolerance test was negative (95, normal range up to 140), and HbA1c was within normal limits. Plan - Follow up in 2 weeks for TTS-TPS screen and to complete suboptimal anatomy scan - Follow up in 4 weeks for regular visit - Drink 32 ounces of water over an hour if experiencing cramping - Come in for evaluation if cramping becomes persistent, stronger, or progressive - Continue monitoring for signs of labor due to twin gestation 1. Progress Reviewed gestational age, growth, and heart rate. Planned frequent visits (every 2 weeks until 36 weeks, then weekly). 2. Instructed patient to monitor movements and report decreases immediately. 3. Testing Counseled on routine third-trimester labs per guidelines. Discussed potential need for ultrasound or monitoring based on risk factors. 4. Preeclampsia Precaution Educated on preeclampsia signs: severe headache, vision changes, right upper quadrant pain, sudden swelling. Advised urgent reporting of symptoms and discussed blood pressure monitoring if high risk. 5. Labor Precautions Reviewed labor signs: regular contractions, pelvic pressure, back pain, bleeding, or fluid leakage. Instructed to seek immediate care for these symptoms. 6. Lifestyle and Delivery Preparation Reinforced vitamins, nutrition, and safe activity. Discussed plan, pain management, and . Advised on labor preparation (e.g., hospital bag) and expectations. 7. Psychosocial Support Assessed emotional well-being and offered resources for mental health or parenting support.
== END 2025-07-28 15:51 | disposition home or self-care (01) ==
PROVIDERS: Supervising Provider Obstetrics & Gynecology; Visit Provider Obstetrics & Gynecology
DX: O09.892 Supervision of other high risk pregnancies, second trimester (principal); O30.032 Twin pregnancy, monochorionic/diamniotic, second trimester; Z3A.25 25 weeks gestation of pregnancy
CPT/HCPCS: 99214; G0463

== ENCOUNTER 2025-08-28 10:03 | Outpatient (AMB) | payer OTHER, MEDICAID, SELFPAY ==
[2025-08-28 10:17] VITALS: BP 117/78; PULSE 97; RESP 20; TEMP 37; O2SAT 97; BMI 35.4
--- NOTE | 2025-08-28 10:17 | OBCLNT_ITS ---
Vital Signs 08/28/25 10:17 Height 1.47 m Height Method Stated Weight 76.657 kg Weight Measurement Method Standing Scale BMI 35.4 BP 117/78 Blood Pressure Source Automatic Cuff Blood Pressure Location Left Upper Arm Position Sitting Respiration 20 Pulse 97 Pulse Source Monitor Temp 98.6 F Temp Source Oral Pulse Oximetry (%) 97 Oxygen Delivery Method Room Air Allergies/Home Meds Allergies & Medications Allergies Penicillins Allergy (Severe, Verified 08/28/25 10:18) RASH Medication Reconciliation vits no.126-ferrous fum 28 mg iron-folic acid 800 mcg tablet (Classic ) 0.126 - 28 tab PO DAILY 30 days #60 tabs 03/12/25 [Rx Confirmed 08/28/25] Intake Visit Data Collection New Patient or Established: Established Patient (seen at [facility] within 3 years) Reason for Visit:: CARE Seen by Clinical Staff ONLY (RN/MA): No Family [facility] Director Required: No Do You Feel Safe at Home: Yes Authorities Contacted: N/A PCP or OBGYN visit in last 3 months: Yes Hx Now: Yes Are you currently on any form of Control: No Pain Present Currently: No Pain Scale Used: Landeros-Simpson/Numerical Pain scale:: 0 Smoking Status Smoking Status: Never smoker Immunizations Flu Vaccine in the Last 12 Months: No Questionnaires Covid-19 Vaccine Questionnaire Has patient been vacinated for Covid-19 Have you been vacinated for Covid-19: Yes PHQ-9 PHQ-2 Over the last 2 weeks, how often have you been bothered by any of the following problems? 1. Little interest or pleasure in doing things: not at all 2. Feeling down, depressed, or hopeless: not at all Total score: 0 PHQ-9 3. Trouble falling or staying asleep, or sleeping too much: Not at all 4. Feeling tired or having little energy: Not at all 5. Poor appetite or overeating: Not at all 6. Feeling bad about yourself - or that you are a failure or have let yourself or your family down: Not at all 7. Trouble concentrating on things, such as reading the newspaper or watching television: Not at all 8. Moving or speaking so slowly that other people could have noticed? - Or the opposite - being so fidgety or restless that you have been moving around a lot more than usual: not at all 9. Thoughts that you would be better off or of hurting yourself in some way: Not at all Total score: 0 Source: Developed by Drs. Sharath Ibarra, Jocelyn Loza, Ronny Parmar and colleagues, with an educational kandace from [employer]. Depression screen completed yes Social History Living Situation History Lives With: Family Housing: House Tobacco History Smoking Status: Never smoker Second Hand Smoke Exposure: No Alcohol History Alcohol Intake: Never Domestic Abuse History Do You Feel Safe at Home: Yes Care OB Visit Log OB Flowsheet Initial Weight: Not Recorded Date -?-?-?-?-?-?-?-?-?-?-?-?- EGA Weight BP Alb Glu CTX Pres Fundal ht FHR Mov Dilation Station Effacement Hx Notes Visit Note 03/12/25 -?-?-?-?-?-?-?-?-?-?-?-?- 5w 3d 69.853 kg 121/76 absent 9 25 yo for OBI, sure dates, LMP 01/09/26, IUP 8w6. no 1st tri discomfort. takes PNV, Negative medical history. patients reports she is bisexual. labs and UTOX today, get NIPT and carrier screen 03/20, sono for dates and viability. pap today. rtc 4 week 25 yo for OBI, sure josee es, LMP 01/09/26, IUP 8w6. no 1st tri discomfort. takes PNV, Negative medical history. patients reports she is bisexual. labs and UTOX today, get NIPT and carrier screen 03/20, sono for dates and viability. pap today. rtc 4 week. urine dip clear 04/09/25 -?-?-?-?-?-?-?-?-?-?-?-?- 9w 3d 68.719 kg 118/76 absent unknown 10 doing well. aware of need for colpo due to abnormal pap/ASCUS/HPV+. patient aware of twin , no +FM yet, denies VB,LOF or cramps. no c/o N/V reviewed pap and need for colpo. schedule MFM appointment for twins/NT and early scan, review SAB precaution and danger s/s. continue PNV and increase fluids, RTC with OB 4 week 05/20/25 -?-?-?-?-?-?-?-?-?-?-?-?- 15w 2d 68.606 kg 101/67 at 15w2d with MCDA twins, reports severe allergies. Denies ANAYA, VC, epigastric pain. FHR: A 150, B 149. Recent sono confirms MCDA gestation. HPV+ screen. Plan: Refer to MFM at [facility]; f/u q2w. Routine labs ordered. Counselled on care, genetic screening, allergy symptom management, warning signs, and lifestyle. Return in 4wks. 06/16/25 -?-?-?-?-?-?-?-?-?-?-?-?- 19w 1d 70.987 kg 112/74 absent active MCDA twin at 19w1d, recent US 06/09/25 shows both twins at 18w1d with equal growth, FHRs 143 (A) & 153 (B), good fluid, patient feels movement, on ASA. Plan: GTT in 1?2 wks, f/u with [facility]?s next week for US/Dopplers, monitor q2?4wks, return here in 4 wks. 07/28/25 -?-?-?-?-?-?-?-?-?-?-?-?- 25w 1d 73.936 kg 107/70 1 para 0 patient at 25 weeks and 1 day gestation with monocorionic diamniotic twins, presenting for routine follow-up. - Patient reports experiencing cramping on her left side for the past week: - Intermittent throughout the day - Not described as particularly bother some or severe - No mention of impact on sleep or yeison ly activities - Patient denies any other symptoms or concerns - Follow up in 2 weeks for TTS- TPS screen and to complete suboptimal anatomy scan - Follow up in 4 weeks for regular prena ayala visit - Drink 32 ounces of water over an hour if experiencing cramping - Come in for evaluation if cramping bec omes persistent, stronger, or progressive - Continue monitoring for signs of prete rm labor due to twin gestation 08/28/25 -?-?-?-?-?-?-?-?-?-?-?-?- 29w 4d 76.657 kg 117/78 occasional cephalic 35 - Rush Corrales is a 1 Para 0 patient here for a visit at 29 weeks and 4 days with monochorionic diamniotic twins. - She had an M ultrasound on which showed both twins are viable with appropriate growth. - Patient inquired about how she will kn ow if she is going into labor. - She asked about when she can go on mat ernity leave from her work at [employer] - Patient denies any current strong cont ractions, bleeding, or rupture of membranes. - Administer bet amethasone steroid injections in hospital to promote lung maturity - first injection today if time permits, second injection tomorrow - Laboratory studies: CBC, RPR, and A1c at 30 weeks - Continue [facility] follow-up appointments ev gracy 2 weeks - Planned delivery due to breec h presentation of twin A and monochorionic twin - Work restriction letter to be provided for patient currently employed at [employer] - Patient instructed to come to hospital immediately for water breaking, bleeding, or strong contractions RAPHAEL Calculator Estimated Delivery Date Method Current WG Current Estimate 11/09/25 Ultrasound #1 29w 4d Other Estimates 10/16/25 LMP (Certain) 33w 0d Notes Visit Date: 08/28/25 Last Updated by: Haider Panda MD - Date: 08/25/2025 - [facility] Ultrasound at 29 weeks 1 day gestation: Monochorionic diamniotic twins, viable intrauterine - Fetus A: Estimated weight 1509 grams (72nd percentile), breech presentation - Fetus B: Estimated weight 1368 grams (42nd percentile), cephalic presentation, velamentous cord insertion - weight discordancy: 9% - Anatomy: No abnormalities noted in either twin - Amniotic fluid: Twin A deepest vertical pocket 5.5 cm, Twin B deepest vertical pocket 5.7 cm - Doppler studies: MCA dopplers normal - No sonographic evidence of twin-twin transfusion syndrome - No sonographic evidence of twin anemia-polycythemia sequence (TAPS) - Bladders visible in both twins Visit Date: 07/28/25 Last Updated by: Haider Panda MD - Date: March 24, 2025 - [facility] Ultrasound: - Monocorionic diamniotic twin gestation - Baby A: 958 grams, 99th percentile - Baby B: 764 grams, 56th percentile - Normal echoes of twin A and twin B - Normal amniotic fluid - Overall anatomy survey within normal limits - Cervix could not be visualized Visit Date: 04/09/25 Last Updated by: Ita Almaraz, CNM 25 yo , IUP 9w3/ twin abnormal pap: ASCUS/HPV+ Office Procedures OBC Clinic LOC & Office Proc's Nursing/Assessment Patient Status: Established Patient OB Clinic Nursing Assessment: Medication Reconciliation, Update PMH in EMR and Vital Signs OB Clinic Coordination of Care: Complex Care and Chronic Disease 1-5, Consent,records obtained, informed consent, Education Simp Pt/Fam, 1 Ins Authorization, Lab and Imaging orders, Results/Orders obtained and Staff clarify orders Special Needs: Heart tones Established Patient Charge Established Patient Point Assignment: 150 Established Patient Point Charge: EP Level 4 (120-155) Assessment & Plan Diagnosis / Problem List (1) Monochorionic diamniotic twin gestation: Status: Acute Plan Problem List - Twin , monochorionic diamniotic - Breech presentation of first twin - Velamentous cord insertion of second twin Assessment 29 weeks and 4 days gestation with monochorionic diamniotic twins. Recent [facility] ultrasound on 08-25-2025 shows Fetus A estimated weight 1509 grams (72nd percentile) in breech presentation and Fetus B 1368 grams (42nd percentile) in cephalic presentation with 9% discordancy. Twin B has velamentous cord insertion. No sonographic evidence of twin-twin transfusion syndrome or TAPS. Normal MCA dopplers and amniotic fluid levels (deepest vertical pocket Twin A 5.5, Twin B 5.7). Anatomy review shows no abnormalities in either twin. Patient reports feeling tightness which may represent [place] contractions versus true contractions. Plan - Administer betamethasone steroid injections in hospital to promote lung maturity - first injection today if time permits, second injection tomorrow - Laboratory studies: CBC, RPR, and A1c at 30 weeks - Continue [facility] follow-up appointments every 2 weeks - Planned delivery due to breech presentation of twin A and monochorionic twin - Work restriction letter to be provided for patient currently employed at [employer] in [place] [facility] [employer] [facility] - Patient instructed to come to hospital immediately for water breaking, bleeding, or strong contractions 1. Progress Reviewed gestational age at 29 weeks 4 days with monochorionic diamniotic twins, growth with Fetus A at 1509 grams (72nd percentile) and Fetus B at 1368 grams (42nd percentile) with 9% discordancy, and heart rate monitoring. Planned frequent visits every 2 weeks until delivery. 2. Instructed patient to monitor movements and report decreases immediately. 3. Testing Counseled on routine third-trimester labs including CBC, RPR, and A1c testing at 30 weeks per guidelines. Discussed recent [facility] ultrasound findings and continued monitoring for twin-twin transfusion syndrome. 4. Preeclampsia Precaution Educated on preeclampsia signs: severe headache, vision changes, right upper quadrant pain, sudden swelling. Advised urgent reporting of symptoms and discussed blood pressure monitoring if high risk. 5. Labor Precautions Reviewed labor signs including strong contractions that cause patient to stop mid-sentence, cervical changes, pelvic pressure, bleeding, or water breaking. Instructed to seek immediate hospital care for these symptoms and discussed administration of steroid shots after 30 weeks for lung maturity. 6. Lifestyle and Delivery Preparation Reinforced vitamins, nutrition, and recommended work leave to reduce time on feet and prevent contractions. Discussed planned section delivery due to breech presentation of Twin A and monochorionic twin , and advised on hospital preparation. 7. Psychosocial Support Assessed work situation and provided work accommodation letter for patient employed at [employer] in [facility], offering support for management.
== END 2025-08-28 10:53 | disposition home or self-care (01) ==
LOC: HODSOBC 10:03
PROVIDERS: Supervising Provider Obstetrics & Gynecology; Visit Provider Obstetrics & Gynecology
DX: O09.893 Supervision of other high risk pregnancies, third trimester (principal); Z3A.29 29 weeks gestation of pregnancy; O30.033 Twin pregnancy, monochorionic/diamniotic, third trimester; O32.1XX2 Maternal care for breech presentation, fetus 2; O43.123 Velamentous insertion of umbilical cord, third trimester
CPT/HCPCS: 99214; G0463

== ENCOUNTER 2025-08-28 11:09 | Outpatient (CLI) | payer OTHER, MEDICAID, SELFPAY ==
[2025-08-28 11:40] VITALS: BP 110/66; PULSE 82; RESP 16; RESP 98; TEMP 36.9; BMI 35.4
[2025-08-28 12:15] VITALS: BP 110/62; PULSE 82
[2025-08-28] MEDS: BETAMET ACET/BETAMET NA PH (Celestone) 6 MG/ML VIAL 12 MG IM (12:26)
== END 2025-08-28 12:45 | disposition home or self-care (01) ==
LOC: S4S1 11:12 → S4SX 11:13
PROVIDERS: Referring Provider Obstetrics & Gynecology; Visit Provider Obstetrics & Gynecology
DX: Z34.03 Encounter for supervision of normal first pregnancy, third trimester (principal); Z36.9 Encounter for antenatal screening, unspecified; Z3A.29 29 weeks gestation of pregnancy
CPT/HCPCS: 59025; 96372; J0702

== ENCOUNTER 2025-08-29 13:08 | Outpatient (CLI) | payer OTHER, MEDICAID, SELFPAY ==
[2025-08-29 13:19] VITALS: BP 110/71; PULSE 82; RESP 18; TEMP 37; BMI 33.4
[2025-08-29] MEDS: BETAMET ACET/BETAMET NA PH (Celestone) 6 MG/ML VIAL 12 MG IM (14:03)
== END 2025-08-29 14:07 | disposition home or self-care (01) ==
LOC: S4S1 13:09 → S4SX 13:09
PROVIDERS: Referring Provider Obstetrics & Gynecology; Visit Provider Obstetrics & Gynecology
DX: Z34.03 Encounter for supervision of normal first pregnancy, third trimester (principal); Z36.9 Encounter for antenatal screening, unspecified; Z3A.29 29 weeks gestation of pregnancy
CPT/HCPCS: 59025; 96372; J0702

== ENCOUNTER 2025-09-26 10:02 | Outpatient (AMB) | payer OTHER, MEDICAID, SELFPAY ==
[2025-09-26 10:13] VITALS: BP 123/78; PULSE 67; RESP 18; TEMP 36.8; O2SAT 97; BMI 37.5
--- NOTE | 2025-09-26 10:13 | OBCLNT_ITS ---
Vital Signs 09/26/25 10:13 Height 1.47 m Height Method Stated Weight 80.966 kg Weight Measurement Method Standing Scale BMI 37.5 BP 123/78 Blood Pressure Source Automatic Cuff Blood Pressure Location Right Upper Arm Position Sitting Respiration 18 Pulse 67 Pulse Source Monitor Temp 98.3 F Temp Source Temporal Artery Scan Pulse Oximetry (%) 97 Oxygen Delivery Method Room Air Allergies/Home Meds Allergies & Medications Allergies Penicillins Allergy (Intermediate, Verified 10/27/25 09:27) RASH Medication Reconciliation vits no.126-ferrous fum 28 mg iron-folic acid 800 mcg tablet (Classic ) 0.126 - 28 tab PO DAILY 30 days #60 tabs 03/12/25 [Rx Confirmed 10/27/25] labetalol 100 mg tablet 100 mg PO BID #30 tabs 09/29/25 [Rx Confirmed 10/27/25] docusate sodium 100 mg capsule (Stool Softener) 100 mg PO QDAY 30 days #30 caps 10/03/25 [Rx Confirmed 10/27/25] enoxaparin 100 mg/mL subcutaneous syringe 40 mg (0.4 mL) SCi QDAY #30 mL 10/06/25 [Rx Confirmed 10/27/25] Immunizations Immunizations Flu Vaccine in the Last 12 Months: No Flu Vaccine Exclusion Criteria: No Exclusion Criteria Care OB Visit Log OB Flowsheet Initial Weight: Not Recorded Date -?-?-?-?-?-?-?-?-?-?-?-?- EGA Weight BP Alb Glu CTX Pres Fundal ht FHR Mov Dilation Station Effacement Hx Notes Visit Note 03/12/25 -?-?-?-?-?-?-?-?-?-?-?-?- 5w 3d 69.853 kg 121/76 absent 9 25 yo for OBI, sure dates, LMP 01/09/26, IUP 8w6. no 1st tri discomfort. takes PNV, Negative medical history. patients reports she is bisexual. labs and UTOX today, get NIPT and carrier screen 03/20, sono for dates and viability. pap today. rtc 4 week 25 yo for OBI, sure josee es, LMP 01/09/26, IUP 8w6. no 1st tri discomfort. takes PNV, Negative medical history. patients reports she is bisexual. labs and UTOX today, get NIPT and carrier screen 03/20, sono for dates and viability. pap today. rtc 4 week. urine dip clear 04/09/25 -?-?-?-?-?-?-?-?-?-?-?-?- 9w 3d 68.719 kg 118/76 absent unknown 10 doing well. aware of need for c olpo due to abnormal pap/ASCUS/HPV+. patient aware of twin , no +FM yet, denies VB,LOF or cramps. no c/o N/V reviewed pap and need for colpo. schedule M appointment for twins/NT and early scan, review SAB precaution and danger s/s. continue PNV and increase fluids, RTC with OB 4 week 05/20/25 -?-?-?-?-?-?-?-?-?-?-?-?- 15w 2d 68.606 kg 101/67 at 15w2d with MCDA twins, reports severe allergies. Denies ANAYA, VC, epigastric pain. FHR: A 150, B 149. Recent sono confirms MCDA gestation. HPV+ screen. Plan: Refer to M at [facility]; f/u q2w. Routine labs ordered. Counselled on care, genetic screening, allergy symptom management, warning signs, and lifestyle. Return in 4wks. 06/16/25 -?-?-?-?-?-?-?-?-?-?-?-?- 19w 1d 70.987 kg 112/74 absent active MCDA twin at 19w1d, recent US 06/09/25 shows both twins at 18w1d with equal growth, FHRs 143 (A) & 153 (B), good fluid, patient feels movement, on ASA. Plan: GTT in 1?2 wks, f/u with [facility]?s next week for US/Dopplers, monitor q2?4wks, return here in 4 wks. 07/28/25 -?-?-?-?-?-?-?-?-?-?-?-?- 25w 1d 73.936 kg 107/70 1 para 0 patient at 25 weeks and 1 day gestation with monocorionic diamniotic twins, presenting for routine follow-up. - Patient reports experiencing cramping on her left side for the past week: - Intermittent throughout the day - Not described as particularly bother some or severe - No mention of impact on sleep or yeison ly activities - Patient denies any other symptoms or concerns - Follow up in 2 weeks for TTS- TPS screen and to complete suboptimal anatomy scan - Follow up in 4 weeks for regular prena ayala visit - Drink 32 ounces of water over an hour if experiencing cramping - Come in for evaluation if cramping bec omes persistent, stronger, or progressive - Continue monitoring for signs of prete rm labor due to twin gestation 08/28/25 -?-?-?-?-?-?-?-?-?-?-?-?- 29w 4d 76.657 kg 117/78 occasional cephalic 35 - uRsh Corrales is a 1 Para 0 patient here for a visit at 29 weeks and 4 days with monochorionic diamniotic twins. - She had an MFM ultrasound on which showed both twins are viable with appropriate growth. - Patient inquired about how she will kn ow if she is going into labor. - She asked about when she can go on mat ernity leave from her work at [employer] - Patient denies any current strong cont ractions, bleeding, or rupture of membranes. - Administer bet amethasone steroid injections in hospital to promote lung maturity - first injection today if time permits, second injection tomorrow - Laboratory studies: CBC, RPR, and A1c at 30 weeks - Continue [facility] follow-up appointments armida dubose 2 weeks - Planned delivery due to breec h presentation of twin A and monochorionic twin - Work restriction letter to be provided for patient currently employed at [employer] in [facility] - Patient instructed to come to hospital immediately for water breaking, bleeding, or strong contractions 09/12/25 -?-?-?-?-?-?-?-?-?-?-?-?- 31w 5d 77.224 kg 120/80 occasional unstable 37 presents for routine care at 31 weeks and 5 days gestation with a monochorionic diamniotic twin . - Patient had an ultrasound on September 08, 2020. - No evidence of ghto-at-lwns transfusio n syndrome (TTTS) noted. - Both babies had reactive non-stress te sts. - Patient is scheduled to return in 2 weeks for follow-up. - Return to hospital in 2 weeks for follow-up check 09/26/25 -?-?-?-?-?-?-?-?-?-?-?-?- 33w 5d 80.966 kg 123/78 occasional unstable - Rush Corrales is a patient with monochorionic diabetic twins at 33 weeks and 5 days gestation presenting for routine follow-up. - She reports feeling some stuff around me but denies contractions when specifically asked. - Patient notes that the twins are movi ng all over the place and mentions having difficulty during ultrasounds due to movement. - She denies any contractions at this visit. - Schedule for October 17, 2026 at 07:30 AM at 37 weeks gestation due to breech-breech presentation of both twins - Patient advised that labor may occur b efore scheduled date and to present to hospital if contractions begin - Follow-up appointment scheduled after October 17, 2026 to review MFM report - Goal of 34 weeks gestation reached, af ter which labor will not be stopped if it occurs spontaneously RAPHAEL Calculator Estimated Delivery Date Method Current WG Current Estimate 11/09/25 Ultrasound #1 38w 4d Other Estimates 10/16/25 LMP (Certain) 42w 0d Notes Visit Date: 09/26/25 Last Updated by: Haider Panda MD - Date: 09/24/2025 - Obstetric ultrasound at 33 weeks 5 days gestation: - Baby A: EFW 2167 grams (42nd percentile) - Baby B: EFW 2010 grams (22nd percentile) - weight discordance: 7% - Presentation: Both twins in breech position - Amniotic fluid volumes: Baby A 4.9 cm, Baby B 5.2 cm (concordant) - MCA Dopplers: Normal for both twins - Biophysical profiles: Reassuring for both twins - No evidence of vpre-fg-xyve transfusion syndrome (TTTS) or twin anemia-polycythemia sequence (TAPS) Visit Date: 09/12/25 Last Updated by: Haider Panda MD - Hemoglobin: 10.9 g/dL - Hemoglobin A1c: 5.3% - Ultrasound (09/08/2020): Monochorionic diamniotic twin at 31 weeks 5 days gestation - Baby A: Largest vertical pocket 4.69 cm, MCA Doppler within normal limits - Baby B: Largest vertical pocket 5.9 cm, MCA Doppler within normal limits - Both fetuses with reactive non-stress tests - No evidence of igwc-rp-wmgl transfusion syndrome Visit Date: 08/28/25 Last Updated by: Haider Panda MD - Date: 08/25/2025 - [facility] Ultrasound at 29 weeks 1 day gestation: Monochorionic diamniotic twins, viable intrauterine - Fetus A: Estimated weight 1509 grams (72nd percentile), breech presentation - Fetus B: Estimated weight 1368 grams (42nd percentile), cephalic presentation, velamentous cord insertion - weight discordancy: 9% - Anatomy: No abnormalities noted in either twin - Amniotic fluid: Twin A deepest vertical pocket 5.5 cm, Twin B deepest vertical pocket 5.7 cm - Doppler studies: MCA dopplers normal - No sonographic evidence of twin-twin transfusion syndrome - No sonographic evidence of twin anemia-polycythemia sequence (TAPS) - Bladders visible in both twins Visit Date: 07/28/25 Last Updated by: Haider Panda MD - Date: March 24, 2025 - [facility] Ultrasound: - Monocorionic diamniotic twin gestation - Baby A: 958 grams, 99th percentile - Baby B: 764 grams, 56th percentile - Normal echoes of twin A and twin B - Normal amniotic fluid - Overall anatomy survey within normal limits - Cervix could not be visualized Visit Date: 04/09/25 Last Updated by: Ita Almaraz CNM 25 yo , IUP 9w3/ twin abnormal pap: ASCUS/HPV+ Office Procedures OBC Clinic LOC & Office Proc's Nursing/Assessment Patient Status: Established Patient OB Clinic Nursing Assessment: Medication Reconciliation, Update PMH in EMR and Vital Signs OB Clinic Coordination of Care: Complex Care and Chronic Disease 1-5, Education Complex Pt/Fam, Consent,records obtained, informed consent, Lab and Imaging orders, Results/Orders obtained and Staff clarify orders Special Needs: Heart tones Established Patient Charge Established Patient Point Assignment: 140 Established Patient Point Charge: EP Level 4 (120-155) Assessment & Plan Diagnosis / Problem List (1) Monochorionic diamniotic twin gestation: Status: Acute Qualifiers: Trimester: third trimester Qualified Code(s): O30.033 - Twin , monochorionic/diamniotic, third trimester Plan Problem List - Monochorionic twin - Twin at 33 weeks and 5 days gestation - Breech presentation of both twins Assessment Monochorionic diamniotic twin gestation at 33 weeks and 5 days with both twins in breech presentation. Recent ultrasound from 09/24/2025 shows Baby A with estimated weight of 2167 grams (42nd percentile) and Baby B with estimated weight of 2010 grams (22nd percentile), with 7% discordance between twins. Both twins are consistent with gestational age, have normal amniotic fluid volumes (4.9 cm and 5.2 cm respectively), normal middle cerebral artery Dopplers, and reassuring biophysical profiles. No evidence of elsd-eo-gobs transfusion syndrome or twin anemia-polycythemia sequence. Patient reports feeling movement and denies contractions. heart rates are reassuring with Baby B noted at 141 bpm. Plan - Schedule for October 17, 2026 at 07:30 AM at 37 weeks gestation due to breech-breech presentation of both twins - Patient advised that labor may occur before scheduled date and to present to hospital if contractions begin - Follow-up appointment scheduled after October 17, 2026 to review MFM report - Goal of 34 weeks gestation reached, after which labor will not be stopped if it occurs spontaneously 1. Progress Reviewed gestational age (33 weeks 5 days), growth (Baby A: 2167 grams, 42nd percentile; Baby B: 2010 grams, 22nd percentile with 7% discordance), and heart rate (Baby B: 141 bpm). Planned frequent visits (every 2 weeks until 36 weeks, then weekly). 2. Instructed patient to monitor movements and report decreases immediately. 3. Testing Counseled on routine third-trimester labs per guidelines. Discussed potential need for ultrasound or monitoring based on risk factors. 4. Preeclampsia Precaution Educated on preeclampsia signs: severe headache, vision changes, right upper quadrant pain, sudden swelling. Advised urgent reporting of symptoms and discussed blood pressure monitoring if high risk. 5. Labor Precautions Reviewed labor signs: regular contractions, pelvic pressure, back pain, bleeding, or fluid leakage. Instructed to seek immediate care for these symptoms. 6. Lifestyle and Delivery Preparation Reinforced vitamins, nutrition, and safe activity. Discussed plan (scheduled section at 37 weeks due to breech- breech presentation), pain management, and . Advised on labor preparation (e.g., hospital bag) and expectations. 7. Psychosocial Support Assessed emotional well-being and offered resources for mental health or parenting support.
== END 2025-09-26 10:44 | disposition home or self-care (01) ==
LOC: HODSOBC 10:02
PROVIDERS: Supervising Provider Obstetrics & Gynecology; Visit Provider Obstetrics & Gynecology
DX: O09.893 Supervision of other high risk pregnancies, third trimester (principal); O30.033 Twin pregnancy, monochorionic/diamniotic, third trimester; O32.1XX2 Maternal care for breech presentation, fetus 2; O32.1XX1 Maternal care for breech presentation, fetus 1; Z3A.33 33 weeks gestation of pregnancy; Z88.0 Allergy status to penicillin
CPT/HCPCS: 99214; G0463

== ENCOUNTER 2025-09-30 08:31 | Observation (INO) | payer OTHER, MEDICAID, SELFPAY ==
--- NOTE | 2025-09-30 08:36 | XR_ITS ---
EXAMINATION: US OB biophysical add gest ORDERING PROVIDER: Haider Panda MD HISTORY: TWINS TECHNIQUE: Multiple transabdominal sonographic images were obtained by aeronautical engineering technologist and submitted for interpretation. COMPARISON: None. FINDINGS: TWIN A: FETUS: Rolon. PRESENTATION: Breech. HEART MOTION: 137 beats/min. AMNIOTIC FLUID INDEX: 9.5 cm BREATHING MOVEMENT: 2 . GROSS BODY MOVEMENT: 2 . TONE: 2 . QUALITATIVE AMNIOTIC FLUID VOLUME: 2 TOTAL BIOPHYSICAL PROFILE: 8 of 8 . TWIN B: FETUS: Rolon. PRESENTATION: Cephalic. HEART MOTION: 135 beats/min. AMNIOTIC FLUID INDEX: 9.5 cm BREATHING MOVEMENT: 2 . GROSS BODY MOVEMENT: 2 . TONE: 2 . QUALITATIVE AMNIOTIC FLUID VOLUME: 2 TOTAL BIOPHYSICAL PROFILE: 8 of 8 . IMPRESSION: Twin A: live intrauterine gestation with biophysical profile 8 of 8. Twin B: live intrauterine gestation with biophysical profile 8 of 8.
[2025-09-30 09:18] VITALS: BP 134/72; PULSE 71; PULSE 77; RESP 18; RESP 97; TEMP 36.8; O2SAT 97; BMI 27.3
[2025-09-30 09:19] VITALS: BP 134/72; PULSE 71
[2025-09-30 09:23] VITALS: PULSE 76; O2SAT 97
[2025-09-30 09:28] VITALS: PULSE 87; O2SAT 99
[2025-09-30 09:33] VITALS: PULSE 78; O2SAT 97
== END 2025-09-30 09:40 | disposition home or self-care (01) ==
PROVIDERS: Admitting Provider Obstetrics & Gynecology; Visit Provider Obstetrics & Gynecology
DX: O30.003 Twin pregnancy, unspecified number of placenta and unspecified number of amniotic sacs, third trimester (principal); Z3A.34 34 weeks gestation of pregnancy
CPT/HCPCS: 59025; 59899; 76819

== ENCOUNTER 2025-10-03 04:55 | Inpatient (IN) | payer OTHER, MEDICAID, SELFPAY ==
[2025-10-03] VITALS (234 sets, daily range): BP systolic 0–166; BP diastolic 0–100; PULSE 76–123; RESP 15–96; TEMP 37–37.9; O2SAT 82–98; BMI 39.6
--- NOTE | 2025-10-03 05:56 | XR_ITS ---
Examination: Biophysical profile, ultrasound, baby A Date and time of exam: October 03, 202549 hours INDICATIONS: Twin gestations, diagnosis preeclampsia, epigastric pressure back pain beginning 2 days ago Technique: Multiple transabdominal sonographic images of the pelvis abdomen obtained. Attention is directed to the breathing movement, gross body movement, amniotic fluid volume and tone. Findings: Amniotic fluid index 8.4 cm, cardiac motion 153 bpm Total biophysical profile is 8 of 8. breathing movement is 2. Gross body movement is 2. tone is 2. Qualitative amniotic fluid volume is 2 Impression: Biophysical profile is 8 of 8. Baby A Examination: Biophysical profile, ultrasound baby B Date and time of exam: October 03, 2025 0749 hours INDICATIONS: Twin gestations, diagnosis preeclampsia, epigastric pressure back pain beginning 2 days ago Technique: Multiple transabdominal sonographic images of the pelvis abdomen obtained. Attention is directed to the breathing movement, gross body movement, amniotic fluid volume and tone. Findings: Amniotic fluid index 8.4 cm, cardiac motion 147 bpm Total biophysical profile is 8 of 8. breathing movement is 2. Gross body movement is 2. tone is 2. Qualitative amniotic fluid volume is 2 Impression: Biophysical profile is 8 of 8.
[2025-10-03 06:36] LABS: Collection Type, Urine Clean Catch
[2025-10-03 06:37] LABS: Basophils # (Auto) 0.0 Thou/mm3 (0.0-0.2); Basophils % (Auto) 0 % (0-2.5); Eosinophils # (Auto) 0.1 Thou/mm3 (0.0-0.5); Eosinophils % (Auto) 1 % (0-10); Hematocrit 31.1 % (36.0-46.0); Hemoglobin 9.7 g/dL (12.0-16.0); Immature Granulocytes Auto 0.19 Thou/mm3 (0.00-0.00); Lymphocytes # (Auto) 1.7 Thou/mm3 (1.0-4.8); Lymphocytes % (Auto) 15 % (10-50); Mean Corpuscular HGB Conc 31.2 g/dl (31.0-37.0); Mean Corpuscular Hemoglobin 24.6 pg (25.0-35.0); Mean Corpuscular Volume 79 fL (80-100); Monocytes # (Auto) 0.9 Thou/mm3 (0.0-0.8); Monocytes % (Auto) 8 % (0-12); Neutrophils # (Auto) 8.0 Thou/mm3 (1.8-7.7); Neutrophils % (Auto) 74 % (37-80); Nucleated Red Blood Cell # 0.12 Thou/mm3 (0.00-0.00); Nucleated Red Blood Cell % 1 /100 WBC (0); Platelet Count 278 Thou/mm3 (140-440); RDW Standard Deviation 42.4 fL (36.4-46.3); Red Blood Count 3.94 Miln/mm3 (4.00-5.20); White Blood Count 10.8 Thou/mm3 (3.6-11.0)
[2025-10-03 06:46] LABS: Amorphous Crystals,Urine Present (Absent); Bacteria,Urine Rare; Bilirubin,Urine Negative (Negative); Blood,Urine Negative (Negative); Clarity,Urine Turbid (Clear/Hazy); Color,Urine Lt-Yellow (Lt Yel-Yel); Glucose, Urine Negative (Negative); Ketones,Urine Negative (Negative); Leukocyte Esterase,Urine Negative (Negative); Nitrite,Urine Negative (Negative); PH,Urine 6.5 (5.0-7.0); Protein,Urine 1+ (Neg - Trace); RBC,Urine 2 /hpf (0-3); Specific Gravity,Urine 1.006 (1.001-1.035); Squamous Epithelial Cell,Urine 2 /hpf (0-5); Urobilinogen,Urine Negative mg/dL (0.0-1.0); WBC,Urine 1 /hpf (0-5)
[2025-10-03 06:55] LABS: Alanine Aminotransferase 32 U/L (10-49); Albumin, Serum 3.5 gm/dL (3.5-5.0); Albumin/Globulin Ratio 1.5 (1.2-2.2); Alkaline Phosphatase 278 U/L (46-116); Anion Gap 10 (7-16); Aspartate Amino Transferase 46 U/L (0-34); BUN/Creatinine Ratio 10 Ratio (12-20); Bilirubin,Total 0.6 mg/dL (0.3-1.2); Blood Urea Nitrogen 6 mg/dL (9-23); Calcium 8.3 mg/dL (8.3-10.6); Calcium (Corrected) 8.7 mg/dL (8.5-10.1); Carbon Dioxide 25.5 mMol/L (20.0-31.0); Chloride 109 mMol/L (98-107); Creatinine (Component) 0.6 mg/dL (0.6-1.3); Estimated Creatinine Clearance 132.2 mL/min (>60); Globulin 2.3 gm/dL (2.3-3.5); Glucose 75 mg/dL (74-106); LDH (Lactate Dehydrogenase) 306 U/L (120-246); Osmolality,Calculated 283 (275-295); Potassium 3.8 mMol/L (3.4-5.1); Sodium 144 mMol/L (136-145); Total Protein 5.8 gm/dL (5.7-8.2); Uric Acid 5.5 mg/dL (3.1-7.8); eGFR > 60 See Note
[2025-10-03 07:04] LABS: Fibrinogen 363 mg/dL (175-375); INR 1.0 (0.9-1.3); Partial Thromboplastin Time 27.3 Seconds (22.0-36.0); Prothrombin Time 10.7 Seconds (9.0-12.2)
[2025-10-03 07:06] LABS: Creatinine,Random Urine 35 mg/dL (30-125); Protein Total, Random Urine 74 mg/dL (1-14)
[2025-10-03] MEDS: TERBUTALINE SULF INJ 1 MG/ML VIAL 0.25 MG SC ×2 (09:10→09:34)
[2025-10-03] MEDS: RINGERS LACTATED 1000 ML 1,000 ML 100 ML IV ×2 (09:10→18:16)
[2025-10-03] MEDS: LABETALOL 100 MG TABLET PO ×2 (10:30→21:00)
[2025-10-03 11:27] LABS: Syphilis Nonreactive (Nonreactive)
[2025-10-03] MEDS: ACETAMINOPHEN IVPB 1,000 MG/100 ML VIAL 250 MG IV ×2 (11:40→17:32)
--- NOTE | 2025-10-03 13:25 | PD.LDHP ---
Documentation for date of: 10/03/25 OB Labor/Induct. HPI History of Present Illness Chief complaint: Contractions, headache, elevated blood pressure : 1 Para: 0 Term pregnancies: 0 pregnancies: 0 Living children: 0 History of Abortions: Spontaneous and Elective: 0 History of Vaginal deliveries: 0 History of sections: No History of : No Date of last menstrual period: 01/09/25 RAPHAEL: 11/09/25 Gestational age based on last menstrual period: 38 History of present illness: Patient is a 25-year-old 1 para 0 at 34 weeks and 5 days with monochorionic diamniotic twin gestation with estimated due date of 11/09/2025 based on ultrasound who presents to labor and delivery triage with multiple complaints. Patient reports contractions every 3 minutes that started last night. She reports a headache that she rates as 6 out of 10. Patient is also reporting of epigastric pain. Patient has chronic hypertension and is on labetalol 100 mg twice daily. Patient is also being comanaged with maternal- medicine and recent ultrasound from 09/23/2025 shows both the baby is in breech position. - Date: 09/24/2025 - Obstetric ultrasound at 33 weeks 5 days gestation: - Baby A: EFW 2167 grams (42nd percentile) - Baby B: EFW 2010 grams (22nd percentile) - weight discordance: 7% - Presentation: Both twins in breech position - Amniotic fluid volumes: Baby A 4.9 cm, Baby B 5.2 cm (concordant) - MCA Dopplers: Normal for both twins - Biophysical profiles: Reassuring for both twins - No evidence of acut-ca-jgbc transfusion syndrome (TTTS) or twin anemia-polycythemia sequence (TAPS) History of Present Adequate Care: Yes Labs Labs: Positive: Rubella Titre, Negative: RPR, Hepatitis B, HIV, Chlamydia and Gonorrhea and Unknown: Herpes Type 1, Herpes Type 2, Group Beta Strep and Covid-19 Past Medical History Surgical History SURGICAL: Negative Section Meds Home Medications and Allergies Allergies Allergy/AdvReac Type Severity Reaction Status Date / Time Penicillins Allergy Intermediate RASH Verified 10/03/25 05:40 OB Exam Physical Exam Vital signs: Temp Pulse Resp BP Pulse Ox O2 Del Method 98.7 F 106 H 18 130/75 95 Room Air 10/03/25 05:17 10/03/25 13:14 10/03/25 05:17 10/03/25 13:14 10/03/25 13:22 10/03/25 04:58 Constitutional Constitutional: no acute distress Routine HEENT Exam Head: Present normocephalic and atraumatic Eye: Present EOMI and PERRL ENT: Present mucous membranes moist Routine Neck Exam Neck: Present supple and trachea midline Routine Cardiovascular Exam Cardiovascular: Present RRR Routine Abdominal Exam Abdominal: Present soft and normoactive bowel sounds Detailed Labor and Delivery Exam Dilation (cm): 1 Effacement (%): 50 station: -3 Consistency: firm Presentation: Breech Comments: heart tones baseline baby A 135, baby B 140, moderate variability of both, accelerations present, variable decelerations present in both. Both babies have biophysical profile of 8 out of 8 today Routine Extremities Exam Extremities: Present full ROM Routine Skin Exam Skin: Present intact, dry and warm Routine Neurological Exam Neurological: Present alert, oriented X3 and CN II-XII intact Routine Psychiatric Exam Psychiatric: Present normal affect and normal thought process OB Results Labs 10/03/25 06:10 10/03/25 06:10 Labs: Short CBC 10/03/25 Range/Units 06:10 WBC 10.8 D (3.6-11.0) Thou/mm3 Hgb 9.7 L (12.0-16.0) g/dL Hct 31.1 L (36.0-46.0) % Plt Count 278 (140-440) Thou/mm3 [facility] 10/03/25 06:10 Sodium 144 Potassium 3.8 Chloride 109 H Carbon Dioxide 25.5 BUN 6 L Creatinine 0.6 Glucose 75 Calcium 8.3 Liver Function 10/03/25 Range/Units 06:10 Total Bilirubin 0.6 (0.3-1.2) mg/dL AST 46 H (0-34) U/L ALT 32 (10-49) U/L Alkaline Phosphatase 278 H (46-116) U/L Albumin 3.5 (3.5-5.0) gm/dL Urine 10/03/25 Range/Units 05:10 Urine Color Lt-Yellow (Lt Yel-Yel) Urine Clarity Turbid A (Clear/Hazy) Urine pH 6.5 (5.0-7.0) Ur Specific [place] 1.006 (1.001-1.035) Urine Protein 1+ A (Neg - Trace) Urine Glucose (UA) Negative (Negative) OB Assessment & Plan Assessment and Plan (1) Monochorionic diamniotic twin gestation: Status: Acute (2) Chronic hypertension affecting : Status: Acute (3) Pre-eclampsia superimposed on chronic hypertension, antepartum: Status: Acute (4) labor: Status: Acute Assessment and plan: 25-year-old G1, P0 with monochorionic diamniotic twin at 34 weeks and 5 days in labor as well as superimposed preeclampsia on chronic hypertension Plan: Admit to inpatient status IV access, LR bolus 1 L followed by maintenance at 125 cc/h Labs to include CBC, type and cross 2 units, RPR, preeclampsia panel Continuous maternal monitoring Bedside ultrasound/biophysical profile already completed Patient already received betamethasone at 32 weeks Follow-up at regular intervals, planned delivery when the team from [facility] arrive.
[2025-10-03] MEDS: CLINDAMYCIN 900MG IVPB 900 MG in PRE-MIXED 1 BAG 50 MG IV ×2 (14:23→21:59)
--- NOTE | 2025-10-03 16:41 | PC.CC ---
received call from Erma requesting assistance for a packet to be printed with pt information for a baby who will be delivered at 2030 tonight and will be transferred out. Pt's clinical information printed and taken to OB. Handed transfer packet to [place] at the nurse station.
[2025-10-03] MEDS: FAMOTIDINE INJ 10 MG/ML VIAL 2 ML 20 MG IV ×2 (18:42)
[2025-10-03] MEDS: METOCLOPRAMIDE INJ 5 MG/ML VIAL 2 ML 10 MG IVP (18:42)
--- NOTE | 2025-10-03 20:00 | ESOP_ITS ---
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 The patient was brought to the operating room and identified with two patient identifiers. She was placed in the supine position, and spinal anesthesia was administered. After confirming adequate anesthesia, the abdomen and perineum were prepped and draped in the usual sterile fashion. A Duran catheter was inserted for continuous bladder drainage. A low transverse (Pfannenstiel) skin incision was made using a scalpel and carried through subcutaneous tissue to the rectus fascia. The previous scar was identified and excised in its entirety. The fascia was incised transversely and dissected off the rectus muscles both superiorly and inferiorly. The rectus bellies were in the midline, and the peritoneum was entered bluntly with the surgeon?s finger. The peritoneal opening was extended to allow adequate exposure. An Graham O-ring retractor was placed for optimal visualization. The lower uterine segment was palpated, and the bladder flap was reflected inferiorly. A low transverse uterine incision ([place]) was made with a scalpel and extended bluntly. The amniotic membranes were ruptured, and clear fluid was released. Following uterine entry, Baby A was noted to be in breech presentation and was delivered via breech extraction. The umbilical cord was double clamped and cut, and the infant was handed off to the team. Baby B was in transverse lie; internal version was performed and the fetus was successfully converted to vertex, then delivered atraumatically. The umbilical cord was clamped and cut, and the was handed off. The placenta was delivered spontaneously and was consistent with a monochorionic diamniotic twin placenta. The uterus was exteriorized and inspected. The uterine cavity was cleared of membranes and clots. The hysterotomy angles were secured with Allis clamps. Persistent bleeding was noted from the left uterine artery. Hemostasis was achieved with placement of compression sutures using 0 Vicryl. The uterine incision was closed in two layers using #1 Monocryl: the first layer was a running locked suture to approximate the myometrium, and the second layer imbricated the serosa and myometrium. Hemostasis was confirmed. The Graham retractor was removed. Peritoneal edges and rectus muscles were reapproximated. Rectus fascia was closed with running 1-0 PDS stratafix. The subcutaneous tissue was irrigated with warm saline, and bleeding points were cauterized using Bovie electrocautery. Subcutaneous tissue was approximated with 2-0 stratafix. The skin was closed using 4-0 monocryl in a subcuticular fashion absorbable moni. A sterile dressing was applied. The patient was cleaned, undraped, and transferred to the recovery room in stable and awake condition. She tolerated the procedure well. All counts were correct ?2. Estimated blood loss (ml): 800 Complications: none Surgical staff Operation Date: 10/03/25 16:15 <No data on this case meets the specified criteria> Diagnosis Discharge Diagnosis (1) labor: Status: Acute (2) Pre-eclampsia superimposed on chronic hypertension, antepartum: Status: Acute (3) Chronic hypertension affecting : Status: Acute (4) Monochorionic diamniotic twin gestation: Status: Acute Problem List Completed Was Problem List Reviewed/Reconciled?: Yes
--- NOTE | 2025-10-03 20:09 | PD.LDDELA1 ---
Data (Multiple) Data Hx Section: No : 1 Term: 0 : 0 Livin Abortions: Spontaneous & Theraputic: 0
--- NOTE | 2025-10-03 20:18 | PC.NURSE ---
1 bag of L/R pitocin given in OR #2 IV bag of L/R pitocin started at beginning of recovery.
[2025-10-03] MEDS: GENTAMICIN INJ 40 MG/ML 20ML 80 MG IV (23:40)
[2025-10-04] VITALS (8 sets, daily range): BP systolic 134–152; BP diastolic 84–92; PULSE 75–93; RESP 16–18; TEMP 36.7–37.6; O2SAT 95–98
[2025-10-04] MEDS: RINGERS LACTATED 1000 ML 1,000 ML 125 ML IV ×2 (04:13→12:56)
[2025-10-04] MEDS: IBUPROFEN TAB 400 MG TABLET 800 MG PO (04:14)
[2025-10-04] MEDS: CLINDAMYCIN 900MG IVPB 900 MG in PRE-MIXED 1 BAG 50 MG IV ×2 (05:59→14:42)
[2025-10-04 08:34] LABS: Basophils # (Auto) 0.0 Thou/mm3 (0.0-0.2); Basophils % (Auto) 0 % (0-2.5); Eosinophils # (Auto) 0.0 Thou/mm3 (0.0-0.5); Eosinophils % (Auto) 0 % (0-10); Hematocrit 25.3 % (36.0-46.0); Immature Granulocytes Auto 0.12 Thou/mm3 (0.00-0.00); Lymphocytes # (Auto) 1.4 Thou/mm3 (1.0-4.8); Lymphocytes % (Auto) 13 % (10-50); Mean Corpuscular HGB Conc 31.6 g/dl (31.0-37.0); Mean Corpuscular Hemoglobin 25.5 pg (25.0-35.0); Mean Corpuscular Volume 81 fL (80-100); Monocytes # (Auto) 1.0 Thou/mm3 (0.0-0.8); Monocytes % (Auto) 9 % (0-12); Neutrophils # (Auto) 8.7 Thou/mm3 (1.8-7.7); Neutrophils % (Auto) 77 % (37-80); Nucleated Red Blood Cell # 0.05 Thou/mm3 (0.00-0.00); Nucleated Red Blood Cell % 0 /100 WBC (0); Platelet Count 246 Thou/mm3 (140-440); RDW Standard Deviation 43.5 fL (36.4-46.3); Red Blood Count 3.14 Miln/mm3 (4.00-5.20); White Blood Count 11.3 Thou/mm3 (3.6-11.0)
[2025-10-04] MEDS: DOCUSATE SOD 100 MG CAPSULE PO (08:35)
[2025-10-04] MEDS: LABETALOL 100 MG TABLET PO ×2 (08:35→20:08)
[2025-10-04 08:38] LABS: Alanine Aminotransferase 30 U/L (10-49); Albumin, Serum 2.6 gm/dL (3.5-5.0); Albumin/Globulin Ratio 1.5 (1.2-2.2); Alkaline Phosphatase 199 U/L (46-116); Anion Gap 8 (7-16); Aspartate Amino Transferase 40 U/L (0-34); BUN/Creatinine Ratio 8 Ratio (12-20); Bilirubin,Total 0.5 mg/dL (0.3-1.2); Blood Urea Nitrogen < 5 mg/dL (9-23); Calcium 7.4 mg/dL (8.3-10.6); Calcium (Corrected) 8.5 mg/dL (8.5-10.1); Carbon Dioxide 23.8 mMol/L (20.0-31.0); Chloride 108 mMol/L (98-107); Creatinine (Component) 0.6 mg/dL (0.6-1.3); Estimated Creatinine Clearance 132.2 mL/min (>60); Globulin 1.7 gm/dL (2.3-3.5); Glucose 76 mg/dL (74-106); Osmolality,Calculated 275 (275-295); Potassium 4.0 mMol/L (3.4-5.1); Sodium 140 mMol/L (136-145); Total Protein 4.3 gm/dL (5.7-8.2); eGFR > 60 See Note
[2025-10-04 08:41] LABS: Hemoglobin 8.0 g/dL (12.0-16.0)
[2025-10-04] MEDS: KETOROLAC INJ 30 MG/ML VIAL IVP ×2 (08:42→16:23)
--- NOTE | 2025-10-04 09:04 | PD.LDPPPRG ---
Subjective Subjective Interval history: The patient is a 25-year-old -1-0-2 status post primary yesterday evening on 10/03/2025 approximately 1935. The patient had a scheduled primary for mono Di twins in the breech breech presentation. She came in with a headache, right upper quadrant pain ,and elevated blood pressures. She is a chronic hypertensive on labetalol. Her protein/ creatinine ratio corresponded to a 24-hour urine of 2843 mg. One of her liver function tests was also elevated. This morning, the patient is resting comfortably in bed. Both babies were transferred to [facility] due to prematurity and lack of space in our nursery, but she states they are both doing well. They are both little girls. One twin weighed 4 pounds 7 ounces the other weighed about 5 pounds 10 ounces. The patient is interested in pumping breast milk and needs a breast pump to bedside. Her Duran catheter is in place draining clear urine. She is tolerating a general diet ,she is reporting some itching around her hands and her back with no rash. Patient has not been out of bed yet since her surgery. Exam Vital Signs Temp Pulse Resp BP Pulse Ox O2 Del Method 98.9 F 75 16 137/90 H 98 Room Air 10/04/25 04:00 10/04/25 08:35 10/04/25 04:00 10/04/25 08:35 10/04/25 04:00 10/04/25 04:00 Narrative Exam Patient is alert and orient x 3 in no apparent distress she is resting comfortably in bed. Abdomen is obese. Dressing is in place and clean dry and intact. Extremities showed no significant erythema and 2+ pitting edema of her ankles. Objective Labs 10/04/25 07:59 10/04/25 07:59 Labs: Laboratory Results - last 24 hr 10/03/25 10/04/25 10:26 07:59 WBC 11.3 H RBC 3.14 L Hgb 8.0 L Hct 25.3 L MCV 81 MCH 25.5 MCHC 31.6 RDW Std Deviation 43.5 Plt Count 246 D Neut % (Auto) 77 Lymph % (Auto) 13 [place] % (Auto) 9 Eos % (Auto) 0 Baso % (Auto) 0 Neut # (Auto) 8.7 H Lymph # (Auto) 1.4 [place] # (Auto) 1.0 H Eos # (Auto) 0.0 Baso # (Auto) 0.0 Immature Gran # (Auto) 0.12 H Absolute Nucleated RBC 0.05 H Immature Gran % 1 H Nucleated RBC % 0 Sodium 140 Potassium 4.0 Chloride 108 H Carbon Dioxide 23.8 Anion Gap 8 BUN < 5 L Creatinine 0.6 Estim Creat Clear Calc 132.2 eGFR > 60 BUN/Creatinine Ratio 8 L Glucose 76 Calculated Osmolality 275 Calcium 7.4 L Corrected Calcium 8.5 Total Bilirubin 0.5 AST 40 H ALT 30 Alkaline Phosphatase 199 H D Total Protein 4.3 L Albumin 2.6 L D Globulin 1.7 L Albumin/Globulin Ratio 1.5 Syphilis Serology Nonreactive Blood Type O Positive Antibody Screen NEGATIVE Crossmatch See Detail Blood Bank Wristband ID Yes Assessment & Plan Problem List (1) labor: Status: Acute (2) Pre-eclampsia superimposed on chronic hypertension, antepartum: Problem details: Continue labetalol. Keep Duran in place as urine output is not currently adequate. Recheck preeclamptic labs daily. Status: Acute (3) Chronic hypertension affecting : Status: Acute (4) Monochorionic diamniotic twin gestation: Status: Acute (5) care following delivery: Problem details: Remove Duran later today once urine output is adequate. Ambulate in the room. Breast pump to bedside. Monitor blood pressure carefully. Status: Acute Time Spent With Patient Time: Total time spent is greater than 50% in coordination of care (as documented) at patient's floor/unit and/or counseling patient: Time with patient: less than 15 minutes
[2025-10-04] MEDS: FERRIC SOD GLUC INJ 125 MG in SODIUM CHLORIDE 0.9% 100 ML 110 MG IV (11:27)
[2025-10-04] MEDS: GENTAMICIN/NS 80 MG IVPB 80 MG/50 ML PIGGYBACK 50 MG IV (11:27)
--- NOTE | 2025-10-04 21:20 | PC.NURSE ---
MD notified (Dr. Guzmán) regarding patient's antibiotics and blood pressure reading 152/92, labetalol 100 mg given and BP rechecked after 30 mins, 135/84. MD stated to monitor patient's BP and discontinue antibiotics.
[2025-10-05] VITALS (13 sets, daily range): BP systolic 121–137; BP diastolic 81–88; PULSE 88–107; RESP 18–24; TEMP 36.9–37.9; O2SAT 92–97
[2025-10-05] MEDS: GENTAMICIN/NS 80 MG IVPB 80 MG/50 ML PIGGYBACK 50 MG IV
[2025-10-05] MEDS: ACETAMINOPHEN 325 MG TABLET 650 MG PO (00:17)
--- NOTE | 2025-10-05 01:02 | PC.NURSE ---
Patient's temp at at 00:00 was 100.1 F and HR 107. Tylenol 650mg PRN was given and cooling measures done. Temp was rechecked after 30 mins it was 100.2, HR 98, O2 sat 94%. Patient denies any chest pain, shortness of breath or dizziness. She stated she only feels hot. MD (Dr. Guzmán) was called and notified regarding patient's vital and condition. No new orders given aside from Lovenox 40mg SQ daily to start now.
--- NOTE | 2025-10-05 01:17 | PC.NURSE ---
Dr. Guzmán came and examined the patient around 01:15. Family at bedside. New orders given.
--- NOTE | 2025-10-05 01:18 | PD.EVENT ---
Documentation for date of: 10/05/25 Event Note Event Note: Called to bedside to examine patient at approximately 0110 in the morning for low-grade fevers 100.2 degrees. Patient's sats are also at 92%. Upon coming into the room patient denies any burning with urination she states her wound hurts a little bit she does not feel subjectively short of breath. No cough. No leg pain. No breast pain. Patient was given clindamycin and gentamicin with her surgery and this was continued for 24 hours postop. She was not given Ancef. She states she gets a rash. She denies shortness of breath or difficulty swallowing with penicillins. Physical exam at bedside reveals patient to be in no apparent distress although she feels warm to the touch her incision is clean dry intact extremities show 2+ edema of the legs. Her lungs are clear to auscultation bilaterally. Plan at this time is to start Ancef 2 g every 8 hours. If patient gets a rash we can give Benadryl. Also Lasix 40 and Lovenox 40 daily were written.
[2025-10-05] MEDS: ENOXAPARIN SOD INJ 100 MG/ML SYRINGE 40 MG SC (01:47)
[2025-10-05] MEDS: FUROSEMIDE INJ 10 MG/ML 4ML VIAL 40 MG IVP ×3 (01:47→20:25)
[2025-10-05] MEDS: ceFAZolin/D5W 2 GM IV 2 GM/100 ML BAG IV ×3 (01:48→17:37)
[2025-10-05 05:40] LABS: Basophils # (Auto) 0.0 Thou/mm3 (0.0-0.2); Basophils % (Auto) 0 % (0-2.5); Eosinophils # (Auto) 0.0 Thou/mm3 (0.0-0.5); Eosinophils % (Auto) 0 % (0-10); Hematocrit 23.3 % (36.0-46.0); Immature Granulocytes Auto 0.25 Thou/mm3 (0.00-0.00); Lymphocytes # (Auto) 1.6 Thou/mm3 (1.0-4.8); Lymphocytes % (Auto) 12 % (10-50); Mean Corpuscular HGB Conc 30.9 g/dl (31.0-37.0); Mean Corpuscular Hemoglobin 24.8 pg (25.0-35.0); Mean Corpuscular Volume 80 fL (80-100); Monocytes # (Auto) 1.2 Thou/mm3 (0.0-0.8); Monocytes % (Auto) 9 % (0-12); Neutrophils # (Auto) 10.3 Thou/mm3 (1.8-7.7); Neutrophils % (Auto) 77 % (37-80); Nucleated Red Blood Cell # 0.10 Thou/mm3 (0.00-0.00); Nucleated Red Blood Cell % 1 /100 WBC (0); Platelet Count 307 Thou/mm3 (140-440); RDW Standard Deviation 43.7 fL (36.4-46.3); Red Blood Count 2.90 Miln/mm3 (4.00-5.20); White Blood Count 13.4 Thou/mm3 (3.6-11.0)
[2025-10-05 05:41] LABS: Hemoglobin 7.2 g/dL (12.0-16.0)
[2025-10-05 06:00] LABS: Alanine Aminotransferase 29 U/L (10-49); Albumin, Serum 2.7 gm/dL (3.5-5.0); Albumin/Globulin Ratio 1.5 (1.2-2.2); Alkaline Phosphatase 181 U/L (46-116); Anion Gap 10 (7-16); Aspartate Amino Transferase 19 U/L (0-34); BUN/Creatinine Ratio 10 Ratio (12-20); Bilirubin,Total 0.3 mg/dL (0.3-1.2); Blood Urea Nitrogen 6 mg/dL (9-23); Calcium 7.9 mg/dL (8.3-10.6); Calcium (Corrected) 8.9 mg/dL (8.5-10.1); Carbon Dioxide 26.1 mMol/L (20.0-31.0); Chloride 106 mMol/L (98-107); Creatinine (Component) 0.6 mg/dL (0.6-1.3); Estimated Creatinine Clearance 132.2 mL/min (>60); Globulin 1.8 gm/dL (2.3-3.5); Glucose 78 mg/dL (74-106); Osmolality,Calculated 279 (275-295); Potassium 3.6 mMol/L (3.4-5.1); Sodium 142 mMol/L (136-145); Total Protein 4.5 gm/dL (5.7-8.2); eGFR > 60 See Note
[2025-10-05] MEDS: LABETALOL 100 MG TABLET PO ×2 (08:39→20:25)
--- NOTE | 2025-10-05 08:40 | ESPR_ITS ---
Subjective Subjective Interval history: Patient has no/ complaints Headache no Blurry vision no Chest pain no Palpitations no Shortness of breath better Nausea or vomiting or constipation no Back pain no Dysuria no Dizziness no calf pain no She is voiding spontaneously after catheter removal yes Passing flatus yes Lochia minimal yes Exam Vital Signs Temp Pulse Resp BP Pulse Ox O2 Del Method 99.2 F 99 24 H 134/88 H 95 Room Air 10/05/25 07:48 10/05/25 08:39 10/05/25 07:48 10/05/25 08:39 10/05/25 07:48 10/05/25 07:48 Narrative Exam alert x3 chest clear CVS RRR NO thyromegaly Uterus is nontender Uterus is firm/ appropriate size Just below the umbilicus Bowel sounds present Abdomen soft no hernias noted/no CVAT Incision CDI No drainage Appropriately tender No calf tenderness Edema mild Objective Labs 10/06/25 05:31 10/05/25 05:10 Labs: Laboratory Results - last 24 hr 10/04/25 10/05/25 07:59 05:10 WBC 11.3 H 13.4 H RBC 3.14 L 2.90 L Hgb 8.0 L 7.2 L Hct 25.3 L 23.3 L MCV 81 80 MCH 25.5 24.8 L MCHC 31.6 30.9 L RDW Std Deviation 43.5 43.7 Plt Count 246 D 307 D Neut % (Auto) 77 77 Lymph % (Auto) 13 12 [place] % (Auto) 9 9 Eos % (Auto) 0 0 Baso % (Auto) 0 0 Neut # (Auto) 8.7 H 10.3 H Lymph # (Auto) 1.4 1.6 [place] # (Auto) 1.0 H 1.2 H Eos # (Auto) 0.0 0.0 Baso # (Auto) 0.0 0.0 Immature Gran # (Auto) 0.12 H 0.25 H Absolute Nucleated RBC 0.05 H 0.10 H Immature Gran % 1 H 2 H Nucleated RBC % 0 1 H Sodium 142 Potassium 3.6 Chloride 106 Carbon Dioxide 26.1 Anion Gap 10 BUN 6 L Creatinine 0.6 Estim Creat Clear Calc 132.2 eGFR > 60 BUN/Creatinine Ratio 10 L Glucose 78 Calculated Osmolality 279 Calcium 7.9 L Corrected Calcium 8.9 Total Bilirubin 0.3 AST 19 ALT 29 Alkaline Phosphatase 181 H Total Protein 4.5 L Albumin 2.7 L Globulin 1.8 L Albumin/Globulin Ratio 1.5 Assessment & Plan Problem List (1) labor: Status: Acute (2) Pre-eclampsia superimposed on chronic hypertension, antepartum: Problem details: Continue labetalol. Preeclamptic labs normal labs daily. Follow-up in clinic in 1 to 2 weeks Status: Acute (3) Chronic hypertension affecting : Status: Acute (4) Monochorionic diamniotic twin gestation: Problem details: Patient has good social support. will arrange a breast pump for home. Patient will follow-up in the office in 1 to 2 weeks. Status: Acute (5) care following delivery: Problem details: Patient had low grade fever and SOB and is feeling better / continue iv Ancef and likely discharge tomorrow Status: Acute Time Spent With Patient Time: Total time spent is greater than 50% in coordination of care (as documented) at patient's floor/unit and/or counseling patient: Time with patient: 25 - 35 minutes
[2025-10-05] MEDS: FERRIC SOD GLUC INJ 125 MG in SODIUM CHLORIDE 0.9% 100 ML 110 MG IV (09:59)
--- NOTE | 2025-10-05 12:20 | CHAP ---
Patient was visited by the Spiritual Care Volunteer who prayed for them. (Volunteer was in the hospital from 11:24-12:20).
[2025-10-05] MEDS: IBUPROFEN TAB 400 MG TABLET 800 MG PO (15:08)
[2025-10-06] MEDS: ceFAZolin/D5W 2 GM IV 2 GM/100 ML BAG IV (01:43)
[2025-10-06 03:45] VITALS: BP 128/81; PULSE 89; RESP 18; TEMP 36.9; O2SAT 95
[2025-10-06 05:57] LABS: Basophils # (Auto) 0.0 Thou/mm3 (0.0-0.2); Basophils % (Auto) 0 % (0-2.5); Eosinophils # (Auto) 0.1 Thou/mm3 (0.0-0.5); Eosinophils % (Auto) 1 % (0-10); Hematocrit 25.8 % (36.0-46.0); Immature Granulocytes Auto 0.51 Thou/mm3 (0.00-0.00); Lymphocytes # (Auto) 2.4 Thou/mm3 (1.0-4.8); Lymphocytes % (Auto) 17 % (10-50); Mean Corpuscular HGB Conc 31.8 g/dl (31.0-37.0); Mean Corpuscular Hemoglobin 25.7 pg (25.0-35.0); Mean Corpuscular Volume 81 fL (80-100); Monocytes # (Auto) 1.3 Thou/mm3 (0.0-0.8); Monocytes % (Auto) 9 % (0-12); Neutrophils # (Auto) 9.7 Thou/mm3 (1.8-7.7); Neutrophils % (Auto) 69 % (37-80); Nucleated Red Blood Cell # 0.11 Thou/mm3 (0.00-0.00); Nucleated Red Blood Cell % 1 /100 WBC (0); Platelet Count 337 Thou/mm3 (140-440); RDW Standard Deviation 43.3 fL (36.4-46.3); Red Blood Count 3.19 Miln/mm3 (4.00-5.20); White Blood Count 14.0 Thou/mm3 (3.6-11.0)
[2025-10-06 06:07] LABS: Hemoglobin 8.2 g/dL (12.0-16.0)
[2025-10-06 07:20] VITALS: BP 143/82; PULSE 75; RESP 19; TEMP 37.1; O2SAT 96
--- NOTE | 2025-10-06 08:46 | ESPR_ITS ---
Subjective Subjective Interval history: Patient is a 25-year-old G1 now P0102 status post primary for twins at 34-5/7 weeks. Both her baby girls are [facility] but are doing well. They were mono di twins and Dr. Panda did her section. She is postop day 3 today. She has a history of chronic hypertension and her blood pressure are stable on 100 labetalol twice daily. Today the patient is resting comfortably in bed. She is reporting no headaches. She is voiding. She is tolerating a general diet. Her bleeding is minimal. She is pumping her breastmilk and would like to come and discuss a breast pump with her and this referral was made. Her predelivery hemoglobin was 9.7 she has been getting IV iron daily and her postdelivery hemoglobin today is 8.2. Patient will be discharged home today to follow-up in 1 to 2 weeks. Discharge instructions were given they include no heavy lifting intercourse tampons or douching x 6 weeks. No heavy lifting or exercise x 6 weeks. Follow-up in the clinic in 1 to 2 weeks. Exam Vital Signs Temp Pulse Resp BP Pulse Ox O2 Del Method 98.8 F 75 19 143/82 H 96 Room Air 10/06/25 07:20 10/06/25 07:20 10/06/25 07:20 10/06/25 07:20 10/06/25 07:20 10/06/25 07:20 Narrative Exam Patient is alert and orient x 3 resting comfortably in bed. Fundus is firm at umbilicus. Incision clean dry and intact extremities show 1+ edema to her knees. No erythema. Objective Labs 10/06/25 05:31 10/05/25 05:10 Labs: Laboratory Results - last 24 hr 10/06/25 05:31 WBC 14.0 H RBC 3.19 L Hgb 8.2 L Hct 25.8 L MCV 81 MCH 25.7 MCHC 31.8 RDW Std Deviation 43.3 Plt Count 337 D Neut % (Auto) 69 Lymph % (Auto) 17 [place] % (Auto) 9 Eos % (Auto) 1 Baso % (Auto) 0 Neut # (Auto) 9.7 H Lymph # (Auto) 2.4 [place] # (Auto) 1.3 H Eos # (Auto) 0.1 Baso # (Auto) 0.0 Immature Gran # (Auto) 0.51 H Absolute Nucleated RBC 0.11 H Immature Gran % 4 H Nucleated RBC % 1 H Assessment & Plan Problem List (1) labor: Status: Acute (2) Pre-eclampsia superimposed on chronic hypertension, antepartum: Problem details: Continue labetalol. Preeclamptic labs normal labs daily. Follow-up in clinic in 1 to 2 weeks Status: Acute (3) Chronic hypertension affecting : Status: Acute (4) Monochorionic diamniotic twin gestation: Problem details: Patient has good social support. will arrange a breast pump for home. Patient will follow-up in the office in 1 to 2 weeks. Status: Acute (5) care following delivery: Problem details: Discharge home day #3 in stable condition. Discharge instructions given. Status: Acute Time Spent With Patient Time: Total time spent is greater than 50% in coordination of care (as documented) at patient's floor/unit and/or counseling patient: Time with patient: less than 15 minutes
[2025-10-06 08:48] VITALS: BP 139/91; PULSE 68
[2025-10-06] MEDS: DOCUSATE SOD 100 MG CAPSULE PO (08:48)
[2025-10-06] MEDS: LABETALOL 100 MG TABLET PO (08:48)
[2025-10-06 08:49] VITALS: BP 139/91; PULSE 68
[2025-10-06] MEDS: FUROSEMIDE INJ 10 MG/ML 4ML VIAL 40 MG IVP (08:49)
[2025-10-06] MEDS: ENOXAPARIN SOD INJ 40 MG/0.4 ML SYRINGE SC (08:49)
[2025-10-06] MEDS: IBUPROFEN TAB 400 MG TABLET 800 MG PO (08:56)
[2025-10-06] MEDS: FERRIC SOD GLUC INJ 125 MG in SODIUM CHLORIDE 0.9% 100 ML 110 MG IV (09:02)
--- NOTE | 2025-10-06 09:02 | PD.LDDS ---
DS: Providers Provider Date of admission: 10/03/25 10:11 Primary care physician: Physician No Primary/Family Admitting Provider: Haider Panda MD Attending Provider on Admission: Haider Panda MD Consults: 10/03/25 20:35 Referral Routine Comment: Attending Provider on DC: Pina Guzmán MD ([facility]) Discharging Provider: Pina Guzmán MD ([facility]) Anticipated date of discharge: 10/06/25 DS: Diagnosis Discharge Diagnosis (1) care following delivery: Status: Acute (2) Pre-eclampsia superimposed on chronic hypertension, antepartum: Status: Acute (3) Chronic hypertension affecting : Status: Acute (4) Monochorionic diamniotic twin gestation: Status: Acute Problem List Completed Was Problem List Reviewed/Reconciled?: Yes Summary/Hosp Course Brief History: Patient is a 25-year-old 1 para 0 at 34 weeks and 5 days with monochorionic diamniotic twin gestation with estimated due date of 11/09/2025 based on ultrasound who presents to labor and delivery triage with multiple complaints. Patient reports contractions every 3 minutes that started last night. She reports a headache that she rates as 6 out of 10. Patient is also reporting of epigastric pain. Patient has chronic hypertension and is on labetalol 100 mg twice daily. Patient is also being comanaged with maternal- medicine and recent ultrasound from 09/23/2025 shows both the baby is in breech position. Patient was admitted by Dr. Panda and underwent a primary 10/03/[address] Panda, The patient's course was uncomplicated. Her predelivery hemoglobin is 9.7 she was given IV iron daily her most hemoglobin postop day #3 is stable at 8.2. She was discharged home postoperative day #3 in stable condition. Her blood pressure was stable on Labetolol 100 mg p.o. twice daily. Discharge instructions included no heavy lifting, intercourse, tampons, douching or exercise x 6 weeks. Follow-up in clinic in 1 to 2 weeks. Peripartum Data Delivery Method: Low Transverse Episiotomy Description: None Procedures: Procedures Operation Date: 10/03/25 16:15 Actual Procedure Side Surgeon p in OB Haider Panda MD complications: none Status at Discharge Cognitive/behavioral status at discharge: Patient is alert and orient x 3 in no apparent distress Functional status at discharge: independent ambulation Overall status at discharge: patient is progressing back to baseline Time Spent with Patient Time attestation: Total time spent providing and/or coordinating discharge services: Time spent: Less than 30 minutes Specific discharge activities: No heavy lifting, intercourse ,tampons, or douching x 6 weeks. No exercise x 6 weeks, follow-up in clinic in 1 to 2 weeks. Exam Vital Signs Temp Pulse Resp BP Pulse Ox O2 Del Method 98.8 F 68 19 139/91 H 96 Room Air 10/06/25 07:20 10/06/25 08:49 10/06/25 07:20 10/06/25 08:49 10/06/25 07:20 10/06/25 07:20 Narrative Exam Patient is alert and orient x 3 no apparent distress fundus is firm nontender at umbilicus, incision clean, dry,and intact extremities show 1+ edema. No erythema. Discharge Plan Plan Patient Disposition: HOME (Self Care) Disposition Comment: Stable Patient condition on transfer: Stable Prescriptions/Referrals Prescriptions/Med Rec: New hydrocodone-acetaminophen 5-325 mg tablet 1 tab PO Q6H MDD 4 PRN (Reason: pain) 5 Days Qty: 20 0RF docusate sodium [Stool Softener] 100 mg capsule 100 mg PO QDAY 30 Days Qty: 30 0RF ibuprofen 600 mg tablet 600 mg PO Q6H MDD 4 PRN (Reason: fever or pain) 10 Days Qty: 40 0RF enoxaparin 100 mg/mL Syringe 40 mg SCi QDAY Qty: 30 0RF Continued Classic 28 mg iron- 800 mcg tablet 0.126 - 28 tab PO DAILY 30 Days Qty: 60 2RF labetalol 100 mg Tablet 100 mg PO BID Qty: 30 0RF Referrals: Haider Panda MD [Physician, [employer]] No Primary/Family,Physician [Primary Care Provider] Patient/Caregiver Discharge Instructions Discharge Activity: activity as tolerated Other Discharge Activity Instructions:: No heavy lifting, intercourse tampons douching x 6 weeks. No heavy exercise x 6 weeks. Follow-up in clinic in 1 to 2 weeks. Other Discharge Diet Instructions: High iron diet as tolerated Education Materials: Healthy Weight Loss After , Understanding Multiple , Breast Care After , Nutrition While , Understanding Depression, : Caring for Yourself, C Section Dc, Feel Healthy After Print Language: Irish Activity Restrictions/Additional Instructions: No heavy lifting intercourse tampons douching x 6 weeks. No heavy exercise x 6 weeks. Follow-up in clinic in 1 to 2 weeks. Stand Alone Forms: Annamarie Award Info., Patient Portal Info Letter Discharge Order Discharge Orders: Discharge (Routine); Ordered 10/06/25 Ordered By: Pina Guzmán ([facility]) Planned Discharge Date 10/06/25 (4) Monochorionic diamniotic twin gestation Qualifiers: Trimester: third trimester Qualified Code(s): O30.033 - Twin , monochorionic/diamniotic, third trimester
== END 2025-10-06 11:10 | disposition home or self-care (01) | DRG 787 ==
LOC: S4SX 14:29 → S4NX 21:26 → S4SX 10-06 08:38
PROVIDERS: Obstetrics & Gynecology; Admitting Provider Obstetrics & Gynecology; Visit Provider Obstetrics & Gynecology
PROC: 10D00Z1 Extraction of Products of Conception, Low, Open Approach (ICD-10-PCS; CPT 59514; principal; 2025-10-03 16:00)
DX: O30.033 Twin pregnancy, monochorionic/diamniotic, third trimester (principal); O60.20X0 Term delivery with preterm labor, unspecified trimester, not applicable or unspecified; Z37.2 Twins, both liveborn; Z3A.38 38 weeks gestation of pregnancy; O11.4 Pre-existing hypertension with pre-eclampsia, complicating childbirth; O32.2XX2 Maternal care for transverse and oblique lie, fetus 2; O32.1XX0 Maternal care for breech presentation, not applicable or unspecified
CPT/HCPCS: 36415; 59025; 59409; 76819; 80053; 81001; 82570; 83615; 84156; 84550; 85025; 85384; 85610; 85730; 86780; 86850; 86900; 86901; 86923; 94664; 94762; A4217; A4314; A4649; J0131; J0689; J0736; J1580; J1650; J1885; J1938; J2250; J2274; J2371; J2470; J2590; J2704; J2765; J2916; J3010; J3105; J3490; J7050; J7120; A9270; J2270

== ENCOUNTER 2025-10-27 08:54 | Outpatient (AMB) | payer OTHER, MEDICAID, SELFPAY ==
--- NOTE | 2025-10-27 09:11 | AMBOBPPN_ITS ---
Vital Signs 10/27/25 09:25 Weight 66.848 kg Weight Measurement Method Standing Scale BP 120/82 Blood Pressure Source Automatic Cuff Blood Pressure Location Left Upper Arm Position Sitting Respiration 18 Pulse 65 Pulse Source Monitor Temp 97.4 F Temp Source Oral Pulse Oximetry (%) 98 Oxygen Delivery Method Room Air Allergies/Home Meds Allergies & Medications Allergies Penicillins Allergy (Intermediate, Verified 10/27/25 09:27) RASH Medication Reconciliation vits no.126-ferrous fum 28 mg iron-folic acid 800 mcg tablet (Classic ) 0.126 - 28 tab PO DAILY 30 days #60 tabs 03/12/25 [Rx Confirmed 10/27/25] labetalol 100 mg tablet 100 mg PO BID #30 tabs 09/29/25 [Rx Confirmed 10/27/25] docusate sodium 100 mg capsule (Stool Softener) 100 mg PO QDAY 30 days #30 caps 10/03/25 [Rx Confirmed 10/27/25] enoxaparin 100 mg/mL subcutaneous syringe 40 mg (0.4 mL) SCi QDAY #30 mL 10/06/25 [Rx Confirmed 10/27/25] Intake Visit Data Collection New Patient or Established: Established Patient (seen at [facility] within 3 years) Reason for Visit:: Seen by Clinical Staff ONLY (RN/MA): No Photographic Editor Required: No Do You Feel Safe at Home: Yes Authorities Contacted: N/A PCP or OBGYN visit in last 3 months: Yes Date of Last PCP or OBGYN visit: 10/27/25 Hx Now: No Are you currently on any form of Control: No Pain Present Currently: No Pain Scale Used: Landeros-Simpson/Numerical Pain scale:: 0 Smoking Status Smoking Status: Never smoker Immunizations Flu Vaccine in the Last 12 Months: Yes Flu Vaccine Exclusion Criteria: Already Received LIST OF FIRST JOB IDEAS: Past Medical History Past Medical History: No Hx Neurological Disorders, No Hx Cardiac Disorders, No Hx Cancer, No Hx Blood Disorders, No Hx Gastrointestinal Disorders, No Hx Renal Disease, No Hx Diabetes Mellitus Type 1 and No Hx Diabetes Mellitus Type 2 Questionnaires Covid-19 Vaccine Questionnaire Has patient been vacinated for Covid-19 Have you been vacinated for Covid-19: No Social History Living Situation History Lives With: Family Housing: House Tobacco History Smoking Status: Never smoker Second Hand Smoke Exposure: No Alcohol History Alcohol Intake: Never Domestic Abuse History Do You Feel Safe at Home: Yes EPDS - PP Depression Screening [place] Pos[place] Depression Screen I have been able to laugh and see the funny side of things: (0) As much as I always could I have looked forward with enjoyment to things: (0) As much as I ever did I have blamed myself unnecessarily when things went wrong: (0) No, never I have been anxious or worried for no good reason: (0) No, not at all I have felt scared or panicky for no very good reason: (0) No, not at all Things have been getting on top of me: (0) No, I have been coping as well as ever I have been so unhappy that I have had difficulty sleeping: (0) No, not at all I have felt sad or miserable: (0) No, not at all I have been so unhappy that I have been crying: (0) No, never The thought of harming myself has occurred to me: (0) Never Total Score: EPDS Score: Referral is indicated for score of 9 or more, suicidal, or if provider believes patient is depressed regardless of score.: 0 EPDS completed yes Care OB Visit Log OB Flowsheet Initial Weight: Not Recorded Date -?-?-?-?-?-?-?-?-?-?-?-?- EGA Weight BP Alb Glu CTX Pres Fundal ht FHR Mov Dilation Station Effacement Hx Notes Visit Note 03/12/25 -?-?-?-?-?-?-?-?-?-?-?-?- 5w 3d 69.853 kg 121/76 absent 9 25 yo for OBI, sure dates, LMP 01/09/26, IUP 8w6. no 1st tri discomfort. takes PNV, Negative medical history. patients reports she is bisexual. labs and UTOX today, get NIPT and carrier screen 03/20, sono for dates and viability. pap today. rtc 4 week 25 yo for OBI, sure josee es, LMP 01/09/26, IUP 8w6. no 1st tri discomfort. takes PNV, Negative medical history. patients reports she is bisexual. labs and UTOX today, get NIPT and carrier screen 03/20, sono for dates and viability. pap today. rtc 4 week. urine dip clear 04/09/25 -?-?-?-?-?-?-?-?-?-?-?-?- 9w 3d 68.719 kg 118/76 absent unknown 10 doing well. aware of need for colpo due to abnormal pap/ASCUS/HPV+. patient aware of twin , no +FM yet, denies VB,LOF or cramps. no c/o N/V reviewed pap and need for colpo. schedule M appointment for twins/NT and early scan, review SAB precaution and danger s/s. continue PNV and increase fluids, RTC with OB 4 week 05/20/25 -?-?-?-?-?-?-?-?-?-?-?-?- 15w 2d 68.606 kg 101/67 at 15w2d with MCDA twins, reports severe allergies. Denies ANAYA, VC, epigastric pain. FHR: A 150, B 149. Recent sono confirms MCDA gestation. HPV+ screen. Plan: Refer to MFM at [facility]; f/u q2w. Routine labs ordered. Counselled on care, genetic screening, allergy symptom management, warning signs, and lifestyle. Return in 4wks. 06/16/25 -?-?-?-?-?-?-?-?-?-?-?-?- 19w 1d 70.987 kg 112/74 absent active MCDA twin at 19w1d, recent US 06/09/25 shows both twins at 18w1d with equal growth, FHRs 143 (A) & 153 (B), good fluid, patient feels movement, on ASA. Plan: GTT in 1?2 wks, f/u with [facility]? next week for US/Dopplers, monitor q2?4wks, return here in 4 wks. 07/28/25 -?-?-?-?-?-?-?-?-?-?-?-?- 25w 1d 73.936 kg 107/70 1 para 0 patient at 25 weeks and 1 day gestation with monocorionic diamniotic twins, presenting for routine follow-up. - Patient reports experiencing cramping on her left side for the past week: - Intermittent throughout the day - Not described as particularly bother some or severe - No mention of impact on sleep or yeison ly activities - Patient denies any other symptoms or concerns - Follow up in 2 weeks for TTS- TPS screen and to complete suboptimal anatomy scan - Follow up in 4 weeks for regular prena ayala visit - Drink 32 ounces of water over an hour if experiencing cramping - Come in for evaluation if cramping bec omes persistent, stronger, or progressive - Continue monitoring for signs of prete rm labor due to twin gestation 08/28/25 -?-?-?-?-?-?-?-?-?-?-?-?- 29w 4d 76.657 kg 117/78 occasional cephalic 35 - Rush Corrales is a 1 Para 0 patient here for a visit at 29 weeks and 4 days with monochorionic diamniotic twins. - She had an M ultrasound on which showed both twins are viable with appropriate growth. - Patient inquired about how she will kn ow if she is going into labor. - She asked about when she can go on mat ernity leave from her work at [employer] - Patient denies any current strong cont ractions, bleeding, or rupture of membranes. - Administer bet amethasone steroid injections in hospital to promote lung maturity - first injection today if time permits, second injection tomorrow - Laboratory studies: CBC, RPR, and A1c at 30 weeks - Continue [facility] follow-up appointments armida dubose 2 weeks - Planned delivery due to breec h presentation of twin A and monochorionic twin - Work restriction letter to be provided for patient currently employed at [employer] in [facility] [employer] [facility] - Patient instructed to come to hospital immediately for water breaking, bleeding, or strong contractions 09/12/25 -?-?-?-?-?-?-?-?-?-?-?-?- 31w 5d 77.224 kg 120/80 occasional unstable 37 presents for routine care at 31 weeks and 5 days gestation with a monochorionic diamniotic twin . - Patient had an ultrasound on September 08, 2020. - No evidence of mygz-nr-mbrz transfusio n syndrome (TTTS) noted. - Both babies had reactive non-stress te sts. - Patient is scheduled to return in 2 weeks for follow-up. - Return to hospital in 2 weeks for follow-up check 09/26/25 -?-?-?-?-?-?-?-?-?-?-?-?- 33w 5d 80.966 kg 123/78 occasional unstable - Rush Corrales is a patient with monochorionic diabetic twins at 33 weeks and 5 days gestation presenting for routine follow-up. - She reports feeling some stuff around me but denies contractions when specifically asked. - Patient notes that the twins are movi ng all over the place and mentions having difficulty during ultrasounds due to movement. - She denies any contractions at this visit. - Schedule for October 17, 2026 at 07:30 AM at 37 weeks gestation due to breech-breech presentation of both twins - Patient advised that labor may occur b efore scheduled date and to present to hospital if contractions begin - Follow-up appointment scheduled after October 17, 2026 to review MFM report - Goal of 34 weeks gestation reached, af ter which labor will not be stopped if it occurs spontaneously RAPHAEL Calculator Estimated Delivery Date Method Current WG Current Estimate 11/09/25 Ultrasound #1 38w 4d Other Estimates 10/16/25 LMP (Certain) 42w 0d Notes Visit Date: 09/26/25 Last Updated by: Haider Panda MD - Date: 09/24/2025 - Obstetric ultrasound at 33 weeks 5 days gestation: - Baby A: EFW 2167 grams (42nd percentile) - Baby B: EFW 2010 grams (22nd percentile) - weight discordance: 7% - Presentation: Both twins in breech position - Amniotic fluid volumes: Baby A 4.9 cm, Baby B 5.2 cm (concordant) - MCA Dopplers: Normal for both twins - Biophysical profiles: Reassuring for both twins - No evidence of rkho-ib-lomm transfusion syndrome (TTTS) or twin a nemia-polycythemia sequence (TAPS) Visit Date: 09/12/25 Last Updated by: Haider Panda MD - Hemoglobin: 10.9 g/dL - Hemoglobin A1c: 5.3% - Ultrasound (09/08/2020): Monochorionic diamniotic twin at 31 weeks 5 days gestation - Baby A: Largest vertical pocket 4.69 cm, MCA Doppler within normal limits - Baby B: Largest vertical pocket 5.9 cm, MCA Doppler within normal limits - Both fetuses with reactive non-stress tests - No evidence of obsw-ip-qdni transfusion syndrome Visit Date: 08/28/25 Last Updated by: Haider Panda MD - Date: 08/25/2025 - [facility] Ultrasound at 29 weeks 1 day gestation: Monochorionic diamniotic twins, viable intrauterine - Fetus A: Estimated weight 1509 grams (72nd percentile), breech presentation - Fetus B: Estimated weight 1368 grams (42nd percentile), cephalic presentation, velamentous cord insertion - weight discordancy: 9% - Anatomy: No abnormalities noted in either twin - Amniotic fluid: Twin A deepest vertical pocket 5.5 cm, Twin B deepest vertical pocket 5.7 cm - Doppler studies: MCA dopplers normal - No sonographic evidence of twin-twin transfusion syndrome - No sonographic evidence of twin anemia-polycythemia sequence (TAPS) - Bladders visible in both twins Visit Date: 07/28/25 Last Updated by: Haider Panda MD - Date: March 24, 2025 - [facility] Ultrasound: - Monocorionic diamniotic twin gestation - Baby A: 958 grams, 99th percentile - Baby B: 764 grams, 56th percentile - Normal echoes of twin A and twin B - Normal amniotic fluid - Overall anatomy survey within normal limits - Cervix could not be visualized Visit Date: 04/09/25 Last Updated by: Ita Almaraz CNM 25 yo , IUP 9w3/ twin abnormal pap: ASCUS/HPV+ HPI Interval History: Post-operative visit following for twins on 10/03, bladder discomfort Rush Corrales is a patient presenting for a post-operative visit following section delivery of twins on October 03, approximately 4 weeks ago. The patient reports bladder discomfort that is not burning in nature but describes her bladder as feeling uncomfortable. She denies fever, chills, or back pain associated with this symptom. The patient is currently doing combination feeding with pumping breast milk and bottle feeding, using fortified breast milk for the twins. One of the twins recently failed a hearing test and had to be [facility] on Monday, but subsequently passed the retest. The patient is managing care for both newborns and is seeking pediatric care, currently seeing different providers at [facility] due to scheduling availability. Surgical History: - section for delivery of twins on October 03, 2024 Obstetric History: - GTPAL: G1 T0 L2 - Delivered twins via section on October 03, 2024. Currently approximately 4 weeks . One twin failed initial hearing test but subsequently passed on repeat testing. Social History: - Lives with sister who provides childcare support - Mother of twins - Combination feeding with pumping breast milk and bottle feeding with fortified breast milk Exam Narrative Physical exam: - Abdomen: incision site examined with tape removal performed. Skin has healed well with excellent approximation. Surgical site appears to have joined perfectly with minimal visible evidence of prior surgery. Office Procedures [facility] LOC & Office Proc's Nursing/Assessment Patient Status: Established Patient OB Clinic Nursing Assessment: Medication Reconciliation, Update PMH in EMR and Vital Signs OB Clinic Coordination of Care: Complex Care and Chronic Disease 1-5, Consent,records obtained, informed consent, Education Simp Pt/Fam, Lab and Imaging orders, Results/Orders obtained and Staff clarify orders Established Patient Charge Established Patient Point Assignment: 105 Established Patient Point Charge: EP Level 3 (80-115) Assessment & Plan Diagnosis / Problem List (1) care following delivery: Status: Acute Plan Postoperative section care Assessment: Patient is approximately 4 weeks status post section for twin delivery on October 03. Surgical site examination reveals excellent healing with skin perfectly joined and no visible evidence of surgical incision. Surgical tape was removed during visit. Patient is doing well postoperatively with combined feeding approach using pumping and bottle feeding with fortified breast milk for the twins. Plan: - Obtain elastic corset/abdominal binder to compress loose abdominal skin and promote tissue retraction - Recommended to purchase from [email or web address] for cost-effectiveness - Emphasized importance of using within first two months for optimal results bladder discomfort Assessment: Patient reports bladder discomfort without burning sensation, fever, chills, or back pain. Symptoms attributed to two factors: bladder manipulation during section procedure and catheter use during surgery. Absence of urinary tract infection symptoms suggests normal postoperative bladder recovery process. Plan: - Increase water intake - Avoid frequent urination; allow bladder to fill completely before emptying to promote stretching - Perform Kegel exercises: squeeze pelvic floor muscles midstream during urination, hold for 5 seconds, then release - If symptoms persist at 2 months , consider referral to pelvic floor physical therapy Contraception planning Assessment: Patient currently not using contraception to avoid potential interference with . Appropriate timing to discuss future contrac eptive options. Plan: - Begin considering contraceptive options for next visit - Options include IUD or implant placement at 2-month visit - 2-month visit scheduled for november
[2025-10-27 09:25] VITALS: BP 120/82; PULSE 65; RESP 18; TEMP 36.3; O2SAT 98
== END 2025-10-27 09:33 | disposition home or self-care (01) ==
LOC: HODSOBC 08:54
PROVIDERS: Supervising Provider Obstetrics & Gynecology; Visit Provider Obstetrics & Gynecology
DX: Z39.2 Encounter for routine postpartum follow-up (principal); Z39.1 Encounter for care and examination of lactating mother; Z88.0 Allergy status to penicillin
CPT/HCPCS: 99213; G0463